=== PATIENT | male | born 1970 | race Hispanic/Latino ===

== ENCOUNTER 2018-06-01 22:20 | Emergency (ER) | payer MEDICAID ==
[2018-06-01 22:20] VITALS: BMI 38.7
[2018-06-01 22:37] VITALS: RESP 18; TEMP 97.7; O2SAT 100
[2018-06-01 23:01] LABS: BASO # 0.02 K/mm3 (0.0-2.0); BASO % 0.2 % (0.0-3.0); EOS # 0.1 (0.0-0.7); EOS % 1.6 % (1.5-5.0); GRAN # 5.62 (1.4-6.5); GRAN % 63.4 % (50.0-68.0); HEMOGLOBIN 17.2 g/dL (14.0-18.0); LYMPH # 2.6 (1.2-3.4); LYMPH % 28.8 % (22.0-35.0); MEAN CELL VOLUME 79.4 fl (80.0-105.0); MEAN CORPUSCULAR HEMOGLOBIN 28.2 pg (25.0-35.0); MEAN CORPUSCULAR HGB CONC 35.5 g/dl (31.0-37.0); MEAN PLATELET VOLUME 10.5 fl (7.0-11.0); MONO # 0.5 (0.1-0.6); RBC 6.11 10^6/uL (3.5-6.1); RED CELL DISTRIBUTION WIDTH 13.6 % (11.5-14.5); WHITE BLOOD COUNT 8.9 10^3/uL (4.5-11.0)
--- NOTE | 2018-06-01 23:20 | ED PDOC ---
Arrival/HPI - General Chief Complaint: Lower Extremity Problem/Injury Time Seen by Provider: 06/01/18 22:22 Historian: Patient - History of Present Illness Narrative History of Present Illness (Text): 06/01/18 23:17 47-year-old male with a history of diabetes who is noncompliant with medications presents today with a chronic right foot/right great toe ulceration for the past 5 months. Patient is complaining of increased pain swelling and redness to the area. He denies fevers or chills. He denies numbness weakness or tingling in the extremity. No chest pain or shortness of breath. Patient claims he stepped on a piece of glass 4 days ago and removed it and wants to have his wound sutured. Past Medical History - Provider Review Nursing Documentation Reviewed: Yes - Travel History Have you recently traveled outside [place] w/in the past 3 mons?: No - Infectious Disease Hx of Infectious Diseases: None - Tetanus Immunization Tetanus Immunization: Unknown - Past Medical History Past Medical History: No Previous - Cardiac Hx Hypertension: Yes - Pulmonary Hx Bronchitis: Yes - Psychiatric Hx Anxiety: Yes Hx Depression: No Hx Substance Use: No - Surgical History Hx Appendectomy: Yes (1969) Hx Tonsillectomy: Yes - Anesthesia Hx Anesthesia: Yes Hx Anesthesia Reactions: No - Suicidal Assessment Feels Threatened In Home Enviroment: No Family/Social History - Physician Review Nursing Documentation Reviewed: Yes Family/Social History: Unknown Family HX Smoking Status: Never Smoked Hx Alcohol Use: No Hx Substance Use: No Hx Substance Use Treatment: No Allergies/Home Meds Allergies/Adverse Reactions: Allergies Penicillins Allergy (Verified 03/28/18 20:22) Home Medications: Home Meds Medication Instructions Recorded Confirmed No Known Home Med 06/02/18 06/02/18 Review of Systems - Review of Systems Constitutional: absent: Fatigue, Fevers Respiratory: absent: SOB, Cough Cardiovascular: absent: Chest Pain, Palpitations Gastrointestinal: absent: Abdominal Pain, Nausea, Vomiting Genitourinary Male: absent: Dysuria Musculoskeletal: absent: Arthralgias, Back Pain, Neck Pain Skin: Rash, Skin Lesions Neurological: absent: Headache, Dizziness Psychiatric: absent: Anxiety, Depression Physical Exam Vital Signs Reviewed: Yes Vital Signs Temp Pulse Resp BP Pulse Ox 06/01/18 22:37 97.7 F 98 H 18 147/82 100 Temperature: Afebrile Blood Pressure: Normal Pulse: Regular Respiratory Rate: Normal Appearance: Positive for: Well-Appearing, Non-Toxic, Comfortable Pain Distress: None Mental Status: Positive for: Alert and Oriented X 3 - Systems Exam Head: Present: Atraumatic Mouth: Present: Moist Mucous Membranes Neck: Present: Normal Range of Motion Respiratory/Chest: Present: Clear to Auscultation, Good Air Exchange. No: Respiratory Distress, Accessory Muscle Use Cardiovascular: Present: Regular Rate and Rhythm, Normal S1, S2. No: Murmurs Lower Extremity: Present: Normal ROM, Tenderness, Swelling, Erythema, Neurovascularly Intact, Capillary Refill < 2 s Neurological: Present: GCS=15, Speech Normal Skin: Present: Warm, Dry Psychiatric: Present: Alert, Oriented x 3 Medical Decision Making ED Course and Treatment: 06/01/18 23:37 47-year-old diabetic male noncompliant with his diabetic medications presenting with what appears to be a chronic open wound to the plantar aspect of the right great toe since January when he was seen at [facility]. CBC within normal limits CMP glucose: X-ray of the right foot shows no acute fracture. Blood cultures pending Tetanus updated I discussed the Findings in depth with the patient advised admission to the hospital for IV antibiotics due to nonhealing ulceration of the foot in a diabetic male. pt has questioned whether he wants to stay in the hospital or not. I have advised the patient that he has a nonhealing ulcer to the foot and is a diabetic we will does not take medications for his diabetes he is at high risk of worsening infection and loss of the toe/foot. Patient has agreed to stay in the hospital. Patient was started on vancomycin and aztreonam IV Case discussed with Dr. Lam. Accepts admission Impression: Nonhealing ulceration of the great toe Admit [facility] - Lab Interpretations Lab Results: 06/01/18 22:45 Lab Results 06/01/18 22:45: WBC 8.9, RBC 6.11 H, Hgb 17.2, Hct 48.5, MCV 79.4 L, MCH 28.2, MCHC 35.5, RDW 13.6, Plt Count 243, MPV 10.5, Gran % 63.4, Lymph % (Auto) 28.8, Sac % (Auto) 6.0, Eos % (Auto) 1.6, Baso % (Auto) 0.2, Gran # 5.62, Lymph # (Auto) 2.6, Sac # (Auto) 0.5, Eos # (Auto) 0.1, Baso # (Auto) 0.02 - RAD Interpretation Radiology Orders: 06/01/18 22:34 FOOT RIGHT GREAT TOE ROUTINE [RAD] Stat Disposition/Present on Arrival - Present on Arrival Any Indicators Present on Arrival: No History of DVT/PE: No History of Uncontrolled Diabetes: No Urinary Catheter: No History of Decub. Ulcer: No History Surgical Site Infection Following: None - Disposition Have Diagnosis and Disposition been Completed?: Yes Diagnosis: Diabetic toe ulcer Disposition Time: 23:38 Patient Plan: Admission Patient Problems: Current Active Problems Problem Status Onset Diabetic toe ulcer Acute Condition: FAIR
[2018-06-01] MEDS: TDAP Vaccine 0.5 mL Syr IM ONE (23:36)
[2018-06-02] MEDS ORDERED: Vancomycin 1gm in NS 250ml 1 GM/250 ML BAG IVPB STA (00:09)
[2018-06-02] MEDS: Sodium Chloride 0.9% 1,000 ML IV STA (00:25)
[2018-06-02] MEDS: Aztreonam 1 Gm in NS 100mL 100 ML IVPB STA (00:25)
[2018-06-02 01:25] LABS: ALB/GLOB RATIO 1.2 (1.1-1.8); ALBUMIN 4.3 g/dL (3.0-4.8); ALT/SGPT 51 U/L (7-56); AST/SGOT 26 U/L (17-59); BLOOD UREA NITROGEN 21 mg/dL (7-21); CALCIUM 9.4 mg/dL (8.4-10.5); GFR NON-AFRICAN AMERICAN > 60
--- NOTE | 2018-06-02 01:31 | CP.PCM.PN ---
<Ronan Wren - Last Filed: 06/02/18 01:18> Subjective - Date & Time of Evaluation Date of Evaluation: 06/02/18 Time of Evaluation: 01:18 - Subjective Subjective: Patient seen at the bedside in the ED. He requested to sign AMA and to to be seen by a podiatry in am. Risks and complications of leaving against medical advice including sepsis, loss of toe/limb, known and unknown complications were explained to the patient and he agreed. Patient was also advised against suturing the ulcer as he requested. The attending physician Dr Lam and I emphasized the importance to see a light adjuster in the morning as an outpatient fo r optimal medical management. Patient is AAOx3 with normal insight and showed understanding. Ronan Wren DO PGY1 Objective - Vital Signs/Intake and Output Vital Signs (last 24 hours): Temp Pulse Resp BP Pulse Ox 97.7 F 98 H 18 147/82 100 06/01/18 22:37 06/01/18 22:37 06/01/18 22:37 06/01/18 22:37 06/01/18 22:37 - Medications Medications: Current Medications Vancomycin HCl (Vancomycin 1gm) 1 gm in 250 mls @ 167 mls/hr IVPB STAT STA; Protocol Stop: 06/02/18 01:38 - Labs Labs: 06/01/18 22:45 <Symone Lam - Last Filed: 06/02/18 06:54> Objective - Vital Signs/Intake and Output Vital Signs (last 24 hours): Temp Pulse Resp BP Pulse Ox 97.7 F 91 H 18 131/84 100 06/01/18 22:37 06/02/18 01:30 06/02/18 01:30 06/02/18 01:30 06/02/18 01:30 - Labs Labs: 06/01/18 22:45 06/02/18 00:10 Attending/Attestation - Attestation I have personally seen and examined this patient.: No I have fully participated in the care of the patient.: No I have reviewed all pertinent clinical information, including history, physical exam and plan: No
[2018-06-02 02:17] VITALS: BP 131/84; PULSE 91
--- NOTE | 2018-06-02 10:23 | RAD ---
Date of service: 06/01/2018 PROCEDURE: Right Foot Radiographs. HISTORY: ulcer, plantar aspect of great toe COMPARISON: None. FINDINGS: BONES: Normal. No fracture. JOINTS: Normal. SOFT TISSUES: Normal. OTHER FINDINGS: None. IMPRESSION: Normal right foot radiographs.
== END 2018-06-02 01:30 | disposition left against medical advice (07) ==
LOC: ED 22:20 → UNDOADMIN 06-02 00:25 → ERH 06-02 00:25
DX: E11.621 Type 2 diabetes mellitus with foot ulcer (principal); L97.519 Non-pressure chronic ulcer of other part of right foot with unspecified severity; I10 Essential (primary) hypertension; Z23 Encounter for immunization
CPT/HCPCS: 73660; 80053; 82948; 85025; 87040; 87070; 87181; 90471; 90715; 99284; J7030

== ENCOUNTER 2018-06-04 22:22 | Inpatient (IN) | payer MEDICAID ==
[2018-06-04 22:40] VITALS: BMI 35.6
[2018-06-04] MEDS ORDERED: Vancomycin 1gm in NS 250ml 1 GM/250 ML BAG IVPB STA (23:03)
[2018-06-04] MEDS ORDERED: Ciprofloxacin 400mg/200ml D5W 400 MG/200 ML BAG IVPB STA (23:05)
--- NOTE | 2018-06-04 23:12 | ED PDOC ---
Arrival/HPI - General Chief Complaint: Lower Extremity Problem/Injury Time Seen by Provider: 06/04/18 22:25 Historian: Patient - History of Present Illness Narrative History of Present Illness (Text): 06/04/18 23:08 47 year old male, whose past medical history includes diabetes (currently not on any medication) presents today after being called back for IV antibiotics and hospitalization for an ulcer to the right great toe. Patient denies any trauma or injury. The patient denies any fever, chills, trauma, injury, chest pain, shortness of breath, abdominal pain, nausea, vomiting, diarrhea, urinary symptoms, back pain, neck pain, headache, dizziness, or any other complaints. Of note, patient is allergic to sulfa and pcn. PMD: Dr. Ross Proctor Symptom Onset: Gradual Symptom Course: Unchanged Activities at Onset: Light Past Medical History - Provider Review Nursing Documentation Reviewed: Yes - Infectious Disease Hx of Infectious Diseases: None - Tetanus Immunization Tetanus Immunization: Unknown - Past Medical History Past Medical History: No Previous - Cardiac Hx Hypertension: Yes - Pulmonary Hx Bronchitis: Yes - Psychiatric Hx Anxiety: Yes Hx Depression: No Hx Substance Use: No - Surgical History Hx Appendectomy: Yes (1969) Hx Tonsillectomy: Yes - Anesthesia Hx Anesthesia: Yes Hx Anesthesia Reactions: No Hx Malignant Hyperthermia: No - Suicidal Assessment Feels Threatened In Home Enviroment: No Family/Social History - Physician Review Nursing Documentation Reviewed: Yes Family/Social History: No Known Family HX Smoking Status: Never Smoked Hx Alcohol Use: No Hx Substance Use: No Hx Substance Use Treatment: No Allergies/Home Meds Allergies/Adverse Reactions: Allergies Penicillins Allergy (Verified 03/28/18 20:22) Home Medications: Home Meds Medication Instructions Recorded Confirmed No Known Home Med 06/02/18 06/04/18 Review of Systems - Physician Review All systems were reviewed & negative as marked: Yes - Review of Systems Constitutional: absent: Fevers, Other (Chills) Respiratory: absent: SOB Cardiovascular: absent: Chest Pain Gastrointestinal: absent: Diarrhea, Nausea, Vomiting Genitourinary Male: absent: Dysuria, Frequency, Hematuria Musculoskeletal: absent: Back Pain, Neck Pain Skin: Ulcer (right great toe) Neurological: absent: Headache, Dizziness Physical Exam Vital Signs Reviewed: Yes Vital Signs Temp Pulse Resp BP Pulse Ox 06/04/18 22:33 98.6 F 89 18 144/88 100 Temperature: Afebrile Blood Pressure: Normal Pulse: Regular Respiratory Rate: Normal Appearance: Positive for: Well-Appearing, Non-Toxic, Comfortable Pain Distress: None Mental Status: Positive for: Alert and Oriented X 3 - Systems Exam Head: Present: Atraumatic, Normocephalic Pupils: Present: PERRL Extroacular Muscles: Present: EOMI Conjunctiva: Present: Normal Mouth: Present: Moist Mucous Membranes Neck: Present: Normal Range of Motion Respiratory/Chest: Present: Clear to Auscultation, Good Air Exchange. No: Respiratory Distress, Accessory Muscle Use Cardiovascular: Present: Regular Rate and Rhythm, Normal S1, S2. No: Murmurs Abdomen: No: Tenderness, Distention, Peritoneal Signs Back: Present: Normal Inspection Upper Extremity: Present: Normal Inspection. No: Cyanosis, Edema Lower Extremity: Present: Other (2x2cm deep ulcer on plantar aspect of the great right toe). No: Edema Neurological: Present: GCS=15, CN II-XII Intact, Speech Normal Skin: Present: Warm, Dry, Normal Color. No: Rashes Psychiatric: Present: Alert, Oriented x 3, Normal Insight, Normal Concentration Medical Decision Making ED Course and Treatment: 06/04/18 23:09 Impression: 47 year old male presents after being called back for IV antibiotics and hospitalization for ulcer to the right great toe. Wound cx from 06/02/18 : +acinetobacter sensitive to cipro, cefipime, gentamycin, zosyn. +MRSA sensitive to bactrim, gentamycin, linezolid, vancomycin. Plan: -- Labs -- Ciprofloxacin, Vancomycin -- Reassess and disposition Prior Visits: Notes and results from previous visits were reviewed. Progress Notes: Labs reviewed : wbc is normal, co2 normal, glucose 414, no anion gap. On reevaluation, patient remains awake alert and oriented 3 in no acute distress, resting comfortably. Lab results d/w the patient. He states that he ate 30 mins ago and that he takes no medicine for DM. Insulin IV and SC ordered as well as IVF bolus. Patient notified of need for admission for IV antibiotics, possible ID and podiatry consult, and for uncontrolled DM. He is agreeable to admission. Case d/w medical asst and with Dr. Gibbons, who agrees with admission to the hospitalist service. - Lab Interpretations I have reviewed the lab results: Yes - Medication Orders Current Medication Orders: Ciprofloxacin (Cipro 400mg/200ml Dsw) 400 mg in 200 mls @ 133.3 mls/hr IVPB STAT STA; Protocol Stop: 06/05/18 00:35 Vancomycin HCl (Vancomycin 1gm) 1 gm in 250 mls @ 167 mls/hr IVPB STAT STA; Protocol Stop: 06/05/18 00:32 - PA / [employer] OPERATOR / Resident Statement MD/DO has reviewed & agrees with the documentation as recorded. - Scribe Statement The provider has reviewed the documentation as recorded by the Scribe Bret Kathleen Provider Scribe Attestation: All medical record entries made by the Karmen were at my direction and personally dictated by me. I have reviewed the chart and agree that the record accurately reflects my personal performance of the history, physical exam, medical decision making, and the department course for this patient. I have also personally directed, reviewed, and agree with the discharge instructions and disposition. Disposition/Present on Arrival - Present on Arrival Any Indicators Present on Arrival: No History of DVT/PE: No History of Uncontrolled Diabetes: No Urinary Catheter: No History of Decub. Ulcer: No History Surgical Site Infection Following: None - Disposition Have Diagnosis and Disposition been Completed?: Yes Diagnosis: Diabetic toe ulcer, Uncontrolled diabetes mellitus Disposition: HOSPITALIZED Disposition Time: 00:00 Patient Plan: Admission Condition: STABLE Forms: Tabber (Maldivian)
[2018-06-04] MEDS ORDERED: Sodium Chloride 0.9% 1,000 ML IV STA (23:43)
[2018-06-04 23:57] LABS: BASO # 0.01 K/mm3 (0.0-2.0); BASO % 0.1 % (0.0-3.0); EOS # 0.1 (0.0-0.7); EOS % 1.5 % (1.5-5.0); GRAN # 4.84 (1.4-6.5); GRAN % 65.1 % (50.0-68.0); HEMOGLOBIN 15.4 g/dL (14.0-18.0); LYMPH % 27.2 % (22.0-35.0); MEAN CELL VOLUME 80.2 fl (80.0-105.0); MEAN CORPUSCULAR HEMOGLOBIN 27.5 pg (25.0-35.0); MEAN CORPUSCULAR HGB CONC 34.2 g/dl (31.0-37.0); MEAN PLATELET VOLUME 10.7 fl (7.0-11.0); MONO # 0.5 (0.1-0.6); MONO % 6.1 % (1.0-6.0); RBC 5.61 10^6/uL (3.5-6.1); RED CELL DISTRIBUTION WIDTH 13.6 % (11.5-14.5); WHITE BLOOD COUNT 7.4 10^3/uL (4.5-11.0)
[2018-06-05 00:12] LABS: ALB/GLOB RATIO 1.3 (1.1-1.8); ALBUMIN 4.2 g/dL (3.0-4.8); ALT/SGPT 48 U/L (7-56); AST/SGOT 26 U/L (17-59); BLOOD UREA NITROGEN 19 mg/dL (7-21); CALCIUM 9.2 mg/dL (8.4-10.5); GFR NON-AFRICAN AMERICAN > 60
[2018-06-05 00:19] LABS: INR 1.01; PARTIAL THROMBOPLASTIN TIME 29.1 Seconds (25.1-36.5); PROTHROMBIN TIME 11.5 SECONDS (9.4-12.5)
[2018-06-05] MEDS ORDERED: Insulin Regular 1 UNITS/0.01 ML ML IV STA (00:25)
[2018-06-05] MEDS ORDERED: Insulin Regular 1 UNITS/0.01 ML ML SC STA (00:26)
[2018-06-05] MEDS ORDERED: Dextrose 50% SYRINGE Inj (50 ml) IV PRN (01:34)
--- NOTE | 2018-06-05 01:52 | CP.PCM.HP ---
<OviAvanid - Last Filed: 06/05/18 06:43> History of Present Illness - History of Present Illness History of Present Illness: Mesha Dior, PGY-1, Medicine H&P Note for Dr. Gibbons: CC: R great toe ulcer Pt is a 47 yo M with pmhx of DM, and anxiety who presents to the ED for a chronic R great toe ulcer. Pt states that he has had this chronic R toe ulcer for about 5 months and started when he was scraping skin off from his foot. Pt admits to not having much feeling in his feet due to his DM being uncontrolled. Pt states that he noticed that the cut would keep opening in the shower and came to the ED to get the wound sutured closed yesterday, and then left AMA upon being told that he was being admitted. Cultures that were taken of the wound which grew Acinetobacter and MRSA so pt was informed to come back to the ED for IV abx. Pt states that he is allergic to sulfa drugs. Pt denies pain but he states that it is because he does not have sensation in his feet. He denies any swelling to the area or increased warmth. He denies any fevers, chills, chest pain, palpitations, SOB, cough, abd pain, n/v, c/d, dysuria but does admit to increased urinary frequency. Pmhx: DM, anxiety Pshx: Appendectomy 20 years ago Meds: Denies All: Sulfa drugs- rash Social: quit smoking 25 years ago, denies any etoh or illicit drug use Fam: Non-contributory PMD: Esthela Pharm: Micky Present on Admission - Present on Admission Any Indicators Present on Admission: No Review of Systems - Review of Systems Review of Systems: 12 point ROS reviewed and negative except noted in HPI above. Past Patient History - Infectious Disease Hx of Infectious Diseases: None - Tetanus Immunizations Tetanus Immunization: Unknown - Past Social History Smoking Status: Never Smoked - CARDIAC Hx Hypertension: Yes - PULMONARY Hx Bronchitis: Yes - PSYCHIATRIC Hx Anxiety: Yes Hx Depression: No Hx Substance Use: No - SURGICAL HISTORY Hx Appendectomy: Yes (1969) Hx Tonsillectomy: Yes - ANESTHESIA Hx Anesthesia: Yes Hx Anesthesia Reactions: No Hx Malignant Hyperthermia: No Meds Allergies/Adverse Reactions: Allergies Allergy/AdvReac Type Severity Reaction Status Date / Time Penicillins Allergy Verified 03/28/18 20:22 Physical Exam - Constitutional Appears: Well, Non-toxic, No Acute Distress - Head Exam Head Exam: ATRAUMATIC, NORMAL INSPECTION, NORMOCEPHALIC - Eye Exam Eye Exam: EOMI, Normal appearance, PERRL - Respiratory Exam Respiratory Exam: Clear to Auscultation Bilateral, NORMAL BREATHING PATTERN. absent: Accessory Muscle Use, Decreased Breath Sounds, Rales, Rhonchi, Wheezes, Respiratory Distress, Stridor - Cardiovascular Exam Cardiovascular Exam: RRR, +S1, +S2. absent: Gallop, Rubs - GI/Abdominal Exam GI & Abdominal Exam: Normal Bowel Sounds, Soft. absent: Distended, Firm, Guarding, Tenderness - Extremities Exam Extremities exam: Positive for: pedal pulses present. Negative for: pedal edema, tenderness Additional comments: 2 cm deep ulcer on plantar aspect of the R great toe - Back Exam Back exam: NORMAL INSPECTION. absent: CVA tenderness (L), CVA tenderness (R) - Neurological Exam Neurological exam: Alert, Oriented x3 - Psychiatric Exam Psychiatric exam: Normal Affect, Normal Mood - Skin Skin Exam: Dry, Normal Color, Warm Results - Vital Signs Recent Vital Signs: Last Vital Signs Temp 98.6 F 06/04/18 22:33 Pulse 89 06/04/18 22:33 Resp 18 06/04/18 22:33 BP 144/88 06/04/18 22:33 Pulse Ox 100 06/04/18 22:33 - Labs Result Diagrams: 06/04/18 23:30 06/04/18 23:30 Labs: Laboratory Results - last 24 hr 06/04/18 06/04/18 06/04/18 23:30 23:30 23:30 WBC 7.4 RBC 5.61 Hgb 15.4 Hct 45.0 MCV 80.2 MCH 27.5 MCHC 34.2 RDW 13.6 Plt Count 216 MPV 10.7 Gran % 65.1 Lymph % (Auto) 27.2 Lyon % (Auto) 6.1 H Eos % (Auto) 1.5 Baso % (Auto) 0.1 Gran # 4.84 Lymph # (Auto) 2.0 Lyon # (Auto) 0.5 Eos # (Auto) 0.1 Baso # (Auto) 0.01 PT 11.5 INR 1.01 APTT 29.1 Sodium 136 Potassium 4.4 Chloride 102 Carbon Dioxide 25 Anion Gap 14 BUN 19 Creatinine 0.8 Est GFR ( Amer) > 60 Est GFR (Non-Af Amer) > 60 POC Glucose (mg/dL) Random Glucose 414 H* Calcium 9.2 Total Bilirubin 0.3 AST 26 ALT 48 Alkaline Phosphatase 92 Total Protein 7.4 Albumin 4.2 Globulin 3.3 Albumin/Globulin Ratio 1.3 06/04/18 23:39 WBC RBC Hgb Hct MCV MCH MCHC RDW Plt Count MPV Gran % Lymph % (Auto) Lyon % (Auto) Eos % (Auto) Baso % (Auto) Gran # Lymph # (Auto) Lyon # (Auto) Eos # (Auto) Baso # (Auto) PT INR APTT Sodium Potassium Chloride Carbon Dioxide Anion Gap BUN Creatinine Est GFR ( Amer) Est GFR (Non-Af Amer) POC Glucose (mg/dL) 383 H Random Glucose Calcium Total Bilirubin AST ALT Alkaline Phosphatase Total Protein Albumin Globulin Albumin/Globulin Ratio Assessment & Plan - Assessment and Plan (Free Text) Assessment: Pt is a 47 yo M with pmhx of DM, and anxiety who presents to the ED for a chronic R great toe ulcer. Pt was seen in ED yesterday for same complaint but left AMA, was called back after wound cx showed him growing acinetobacter and MRSA. Pt is allergic to sulfa drugs as per pt. Plan: 1. Diabetic foot ulcer: - R sided diabetic foot ulcer on the plantar aspect of R great toe - Wound cx grew: Acinetobacter and MRSA - Pt started on cipro and vanc IV - ID consulted - Podiatry consulted - Foot XR taken in ED on 06/01 admission yesterday showed normal R foot XR 2. Hyperglycemia w/out gap: - ISS- medium - Cont to monitor 3. Uncontrolled DM: - HgbA1c - ISS- Medium - Cont to monitor 4. PPX: GI: Protonic DVT: Lovenox Case seen and discussed with Dr. Edwige Dior, PGY-1 <Raul Gibbons - Last Filed: 06/06/18 14:20> Results - Vital Signs Recent Vital Signs: Last Vital Signs Temp 98.7 F 06/06/18 07:00 Pulse 65 06/06/18 07:00 Resp 20 06/06/18 07:00 BP 150/98 H 12/24/18 07:00 Pulse Ox 98 06/06/18 07:00 - Labs Result Diagrams: 06/06/18 06:45 06/06/18 06:45 Labs: Laboratory Results - last 24 hr 06/05/18 06/05/18 06/05/18 07:00 14:45 15:47 WBC RBC Hgb Hct MCV MCH MCHC RDW Plt Count MPV Gran % Lymph % (Auto) Lyon % (Auto) Eos % (Auto) Baso % (Auto) Gran # Lymph # (Auto) Lyon # (Auto) Eos # (Auto) Baso # (Auto) Sodium Potassium Chloride Carbon Dioxide Anion Gap BUN Creatinine Est GFR ( Amer) Est GFR (Non-Af Amer) POC Glucose (mg/dL) 205 H Random Glucose Hemoglobin A1c 10.6 H Calcium Total Bilirubin AST ALT Alkaline Phosphatase Troponin I < 0.01 Total Protein Albumin Globulin Albumin/Globulin Ratio 06/05/18 06/05/18 06/06/18 20:00 20:36 02:40 WBC RBC Hgb Hct MCV MCH MCHC RDW Plt Count MPV Gran % Lymph % (Auto) Lyon % (Auto) Eos % (Auto) Baso % (Auto) Gran # Lymph # (Auto) Lyon # (Auto) Eos # (Auto) Baso # (Auto) Sodium Potassium Chloride Carbon Dioxide Anion Gap BUN Creatinine Est GFR ( Amer) Est GFR (Non-Af Amer) POC Glucose (mg/dL) 202 H Random Glucose Hemoglobin A1c Calcium Total Bilirubin AST ALT Alkaline Phosphatase Troponin I < 0.01 < 0.01 Total Protein Albumin Globulin Albumin/Globulin Ratio 06/06/18 06/06/18 06/06/18 06:36 06:45 06:45 WBC 8.4 RBC 5.88 Hgb 16.5 Hct 46.8 MCV 79.6 L MCH 28.1 MCHC 35.3 RDW 13.5 Plt Count 214 MPV 10.2 Gran % 58.8 Lymph % (Auto) 32.0 Lyon % (Auto) 7.0 H Eos % (Auto) 2.1 Baso % (Auto) 0.1 Gran # 4.92 Lymph # (Auto) 2.7 Lyon # (Auto) 0.6 Eos # (Auto) 0.2 Baso # (Auto) 0.01 Sodium Potassium Chloride Carbon Dioxide Anion Gap BUN Creatinine Est GFR ( Amer) Est GFR (Non-Af Amer) POC Glucose (mg/dL) 150 H Random Glucose Hemoglobin A1c 10.6 H Calcium Total Bilirubin AST ALT Alkaline Phosphatase Troponin I Total Protein Albumin Globulin Albumin/Globulin Ratio 06/06/18 06:45 WBC RBC Hgb Hct MCV MCH MCHC RDW Plt Count MPV Gran % Lymph % (Auto) Lyon % (Auto) Eos % (Auto) Baso % (Auto) Gran # Lymph # (Auto) Lyon # (Auto) Eos # (Auto) Baso # (Auto) Sodium 138 Potassium 3.9 Chloride 104 Carbon Dioxide 25 Anion Gap 13 BUN 12 Creatinine 0.8 Est GFR ( Amer) > 60 Est GFR (Non-Af Amer) > 60 POC Glucose (mg/dL) Random Glucose 189 H Hemoglobin A1c Calcium 9.3 Total Bilirubin 0.8 AST 22 ALT 45 Alkaline Phosphatase 71 Troponin I Total Protein 7.7 Albumin 4.3 Globulin 3.4 Albumin/Globulin Ratio 1.3 Attending/Attestation - Attestation I have personally seen and examined this patient.: Yes I have fully participated in the care of the patient.: Yes I have reviewed all pertinent clinical information: Yes
[2018-06-05] MEDS: Pantoprazole 40 mg EC Tab PO SCH (05:44)
[2018-06-05 07:33] LABS: BASO # 0.02 K/mm3 (0.0-2.0); BASO % 0.3 % (0.0-3.0); EOS # 0.1 (0.0-0.7); GRAN # 3.75 (1.4-6.5); HEMOGLOBIN 15.1 g/dL (14.0-18.0); LYMPH # 2.4 (1.2-3.4); LYMPH % 34.5 % (22.0-35.0); MEAN CELL VOLUME 80.4 fl (80.0-105.0); MEAN CORPUSCULAR HEMOGLOBIN 27.2 pg (25.0-35.0); MEAN CORPUSCULAR HGB CONC 33.9 g/dl (31.0-37.0); MEAN PLATELET VOLUME 10.3 fl (7.0-11.0); MONO # 0.6 (0.1-0.6); MONO % 9.2 % (1.0-6.0); RBC 5.55 10^6/uL (3.5-6.1); RED CELL DISTRIBUTION WIDTH 13.5 % (11.5-14.5)
[2018-06-05 07:44] LABS: ALB/GLOB RATIO 1.3 (1.1-1.8); ALT/SGPT 47 U/L (7-56); AST/SGOT 18 U/L (17-59); BLOOD UREA NITROGEN 15 mg/dL (7-21); CALCIUM 8.8 mg/dL (8.4-10.5); GFR NON-AFRICAN AMERICAN > 60
[2018-06-05] MEDS: Insulin Lispro (humaLOG) MEDIUM Coverage SC SCH ×3 (08:26→17:06)
[2018-06-05] MEDS ORDERED: Ciprofloxacin 400mg/200ml D5W 400 MG/200 ML BAG IVPB SCH ×2 (10:00→22:00)
[2018-06-05] MEDS ORDERED: Enoxaparin 40 mg Syringe SC SCH (10:00)
--- NOTE | 2018-06-05 13:00 | CP.PCM.CON ---
History of Present Illness - History of Present Illness History of Present Illness: Podiatry consult note for Dr. cummings, Pt is a 47 yo M with pmhx of DM, and anxiety who presents to the ED for a chronic R great toe ulcer. Pt states that he has had this chronic R toe ulcer for about 5 months and started when he was scraping skin off from his foot. Patient denies much of a sensation in the foot. Patient was recenty in the ED to gget the wound sutured closed however left AMA when he was advised that he will need to be admitted. Pt denies pain Denies seeing any purulent drainage. He denies any swelling to the area or increased warmth. He denies any fevers, chills, chest pain, palpitations, SOB, cough, n/v, c/d, Pmhx: DM, anxiety Pshx: Appendectomy 20 years ago Meds: Denies All: Sulfa drugs- rash Social: quit smoking 25 years ago, denies any etoh or illicit drug use Fam: Non-contributory PMD: Esthela Pharm: Micky Past Patient History - Infectious Disease Hx of Infectious Diseases: None - Tetanus Immunizations Tetanus Immunization: Unknown - Past Social History Smoking Status: Never Smoked - CARDIAC Hx Hypertension: Yes - PULMONARY Hx Bronchitis: Yes - MUSCULOSKELETAL/RHEUMATOLOGICAL Hx Falls: No - PSYCHIATRIC Hx Anxiety: Yes Hx Depression: No Hx Substance Use: No - SURGICAL HISTORY Hx Appendectomy: Yes (1969) Hx Tonsillectomy: Yes - ANESTHESIA Hx Anesthesia: Yes Hx Anesthesia Reactions: No Hx Malignant Hyperthermia: No Meds Allergies/Adverse Reactions: Allergies Allergy/AdvReac Type Severity Reaction Status Date / Time Penicillins Allergy Verified 03/28/18 20:22 - Medications Medications: Current Medications Dextrose (Dextrose 50% Inj) 0 ml IV STAT PRN; Protocol PRN Reason: Hypoglycemia Protocol Enoxaparin Sodium (Lovenox) 40 mg SC DAILY [facility]; Protocol Last Admin: 06/05/18 09:33 Dose: 40 mg Vancomycin HCl (Vancomycin 1gm) 1 gm in 250 mls @ 167 mls/hr IVPB Q12H [facility]; Protocol Dextrose (Dextrose 5% In Water 1000 Ml) 1,000 mls @ 0 mls/hr IV .Q0M PRN; Protocol PRN Reason: Hypoglycemia Protocol Insulin Human Lispro (Humalog Med) 0 units SC ACHS [facility]; Protocol Last Admin: 06/05/18 12:21 Dose: 5 unit Pantoprazole Sodium (Protonix Ec Tab) 40 mg PO 0600 [facility] Last Admin: 06/05/18 05:44 Dose: 40 mg Physical Exam - Constitutional Appears: Well, Non-toxic, No Acute Distress - Head Exam Head Exam: ATRAUMATIC, NORMOCEPHALIC - Eye Exam Eye Exam: Normal appearance Pupil Exam: NORMAL ACCOMODATION - ENT Exam ENT Exam: Mucous Membranes Moist - Respiratory Exam Respiratory Exam: NORMAL BREATHING PATTERN - Cardiovascular Exam Cardiovascular Exam: REGULAR RHYTHM - Extremities Exam Additional comments: Right lower extremity exam: vascular: Dp/PT 2/4, CFT <3 secs x 5, TG warm to cool, no erythema or edema noted neuro: protective sensation diminished via ipswich 07/18 derm: circular ulcer noted on the plantar aspect of the hallux measuring approximately 1.5 cm x 1.5 cmx 2.0 cm. Wound base is 100% fibrotic, minimal active serous drainage noted, no purulence, no fluctuance, no tracking or tunneling, no malodor, no clinical signs of soft tissue infection ortho: no pain on palpation of the right hallux or ROM of the right 1st MPJ Results - Vital Signs Recent Vital Signs: Last Vital Signs Temp 98.7 F 06/05/18 06:00 Pulse 82 06/05/18 06:00 Resp 20 06/05/18 06:00 BP 138/90 06/05/18 06:00 Pulse Ox 100 06/05/18 06:00 - Labs Result Diagrams: 06/05/18 07:00 06/05/18 07:00 Labs: Laboratory Results - last 24 hr 06/04/18 06/04/18 06/04/18 23:30 23:30 23:30 WBC 7.4 RBC 5.61 Hgb 15.4 Hct 45.0 MCV 80.2 MCH 27.5 MCHC 34.2 RDW 13.6 Plt Count 216 MPV 10.7 Gran % 65.1 Lymph % (Auto) 27.2 [place] % (Auto) 6.1 H Eos % (Auto) 1.5 Baso % (Auto) 0.1 Gran # 4.84 Lymph # (Auto) 2.0 [place] # (Auto) 0.5 Eos # (Auto) 0.1 Baso # (Auto) 0.01 PT 11.5 INR 1.01 APTT 29.1 Sodium 136 Potassium 4.4 Chloride 102 Carbon Dioxide 25 Anion Gap 14 BUN 19 Creatinine 0.8 Est GFR ( Amer) > 60 Est GFR (Non-Af Amer) > 60 POC Glucose (mg/dL) Random Glucose 414 H* Calcium 9.2 Total Bilirubin 0.3 AST 26 ALT 48 Alkaline Phosphatase 92 Total Protein 7.4 Albumin 4.2 Globulin 3.3 Albumin/Globulin Ratio 1.3 06/04/18 06/05/18 06/05/18 23:39 01:54 07:00 WBC 7.0 RBC 5.55 Hgb 15.1 Hct 44.6 MCV 80.4 MCH 27.2 MCHC 33.9 RDW 13.5 Plt Count 193 MPV 10.3 Gran % 54.0 Lymph % (Auto) 34.5 [place] % (Auto) 9.2 H Eos % (Auto) 2.0 Baso % (Auto) 0.3 Gran # 3.75 Lymph # (Auto) 2.4 [place] # (Auto) 0.6 Eos # (Auto) 0.1 Baso # (Auto) 0.02 PT INR APTT Sodium Potassium Chloride Carbon Dioxide Anion Gap BUN Creatinine Est GFR ( Amer) Est GFR (Non-Af Amer) POC Glucose (mg/dL) 383 H 275 H Random Glucose Calcium Total Bilirubin AST ALT Alkaline Phosphatase Total Protein Albumin Globulin Albumin/Globulin Ratio 06/05/18 06/05/18 06/05/18 07:00 08:00 11:33 WBC RBC Hgb Hct MCV MCH MCHC RDW Plt Count MPV Gran % Lymph % (Auto) [place] % (Auto) Eos % (Auto) Baso % (Auto) Gran # Lymph # (Auto) [place] # (Auto) Eos # (Auto) Baso # (Auto) PT INR APTT Sodium 138 Potassium 3.8 Chloride 104 Carbon Dioxide 26 Anion Gap 12 BUN 15 Creatinine 0.7 L Est GFR ( Amer) > 60 Est GFR (Non-Af Amer) > 60 POC Glucose (mg/dL) 184 H 253 H Random Glucose 210 H Calcium 8.8 Total Bilirubin 0.4 AST 18 ALT 47 Alkaline Phosphatase 72 Total Protein 7.1 Albumin 4.0 Globulin 3.1 Albumin/Globulin Ratio 1.3 Assessment & Plan - Assessment and Plan (Free Text) Assessment: 47 year old male presents after being called back for IV antibiotics and hospitalization for ulcer to the right great toe. Plan: Patient seen and evaluated chart, labs and vitals reviewed, absent leukocytosis, afebrile x-ray of the foot reviewed; no signs of osseous abnormality noted MRI of the lower extremity ordered to rule out osteomyelitis wound cultures taken from the wound: acinetobacter and MRSA Continue ciprofloxcain and vancomycin ID on board, recs appreciated. Podiatry will continue to follow the patient WBAT to the heel and surgical shoe. Thank you for the consult
[2018-06-05] MEDS: Vancomycin 1gm in NS 250ml 1 GM/250 ML BAG IVPB SCH (13:46)
[2018-06-05 15:35] VITALS: O2SAT 98
--- NOTE | 2018-06-05 17:39 | CP.PCM.CON ---
History of Present Illness - History of Present Illness History of Present Illness: Infectious Disease Consultation: June 05, 2018 47 yo male with PMHx of DM and anxiety presenting with a Right great toe ulcer. Patient claims the ulcer started 5 months ago. He was in the ER a few days ago but left AMA when he was being told that he was being admitted to the hospital. The patient has uncontrolled diabetes and is showing definite signs of diabetic neuropathy. Cultures of the wound taken at that time showed MRSA and Acinetobacter. PMHx: DM, Anxiety PSHx: Appendectomy 20 years ago Allergies: Sulfa - rash Social Hx: stopped smoking 25 years ago No illicit drug use No EtOH Active Medications Dextrose (Dextrose 50% Inj) 0 ml IV STAT PRN; Protocol PRN Reason: Hypoglycemia Protocol Enoxaparin Sodium (Lovenox) 40 mg SC DAILY [facility]; Protocol Last Admin: 06/05/18 09:33 Dose: 40 mg Vancomycin HCl (Vancomycin 1gm) 1 gm in 250 mls @ 167 mls/hr IVPB Q12H [facility]; Protocol Last Admin: 06/05/18 13:46 Dose: 167 mls/hr Dextrose (Dextrose 5% In Water 1000 Ml) 1,000 mls @ 0 mls/hr IV .Q0M PRN; Protocol PRN Reason: Hypoglycemia Protocol Insulin Human Lispro (Humalog Med) 0 units SC ACHS [facility]; Protocol Last Admin: 06/05/18 17:06 Dose: 3 unit Pantoprazole Sodium (Protonix Ec Tab) 40 mg PO 0600 [facility] Last Admin: 06/05/18 05:44 Dose: 40 mg Family Hx: none given ROS: peripheral neuropathy, right toe ulcer No chest pain, abdominal pain, melena, hematuria, hematemesis, hematochezia, depression, anxiety, diarrhea, headaches, dizziness, vision loss, hearing loss, loss of consciousness. Past Patient History - Infectious Disease Hx of Infectious Diseases: None - Tetanus Immunizations Tetanus Immunization: Unknown - Past Social History Smoking Status: Never Smoked - CARDIAC Hx Hypertension: Yes - PULMONARY Hx Bronchitis: Yes - MUSCULOSKELETAL/RHEUMATOLOGICAL Hx Falls: No - PSYCHIATRIC Hx Anxiety: Yes Hx Depression: No Hx Substance Use: No - SURGICAL HISTORY Hx Appendectomy: Yes (1969) Hx Tonsillectomy: Yes - ANESTHESIA Hx Anesthesia: Yes Hx Anesthesia Reactions: No Hx Malignant Hyperthermia: No Meds Allergies/Adverse Reactions: Allergies Allergy/AdvReac Type Severity Reaction Status Date / Time Penicillins Allergy Verified 03/28/18 20:22 - Medications Medications: Current Medications Dextrose (Dextrose 50% Inj) 0 ml IV STAT PRN; Protocol PRN Reason: Hypoglycemia Protocol Enoxaparin Sodium (Lovenox) 40 mg SC DAILY [facility]; Protocol Last Admin: 06/05/18 09:33 Dose: 40 mg Vancomycin HCl (Vancomycin 1gm) 1 gm in 250 mls @ 167 mls/hr IVPB Q12H [facility]; Protocol Last Admin: 06/05/18 13:46 Dose: 167 mls/hr Dextrose (Dextrose 5% In Water 1000 Ml) 1,000 mls @ 0 mls/hr IV .Q0M PRN; Pro tocol PRN Reason: Hypoglycemia Protocol Insulin Human Lispro (Humalog Med) 0 units SC ACHS [facility]; Protocol Last Admin: 06/05/18 17:06 Dose: 3 unit Pantoprazole Sodium (Protonix Ec Tab) 40 mg PO 0600 [facility] Last Admin: 06/05/18 05:44 Dose: 40 mg Physical Exam - Constitutional Appears: Non-toxic, No Acute Distress, Chronically Ill - Head Exam Head Exam: ATRAUMATIC, NORMOCEPHALIC - Eye Exam Eye Exam: EOMI, PERRL Pupil Exam: NORMAL ACCOMODATION, PERRL - ENT Exam ENT Exam: Mucous Membranes Moist, Normal External Ear Exam, TM's Normal Bilaterally - Neck Exam Neck exam: Positive for: Full Rom, Normal Inspection - Respiratory Exam Respiratory Exam: Clear to Auscultation Bilateral, NORMAL BREATHING PATTERN. a bsent: Rales, Rhonchi, Wheezes - Cardiovascular Exam Cardiovascular Exam: REGULAR RHYTHM, RRR, +S1, +S2 - GI/Abdominal Exam GI & Abdominal Exam: Normal Bowel Sounds, Soft. absent: Distended, Tenderness - Extremities Exam Extremities exam: Positive for: full ROM Additional comments: vascular: Dp/PT 2/4, CFT <3 secs x 5, TG warm to cool, no erythema or edema noted neuro: protective sensation diminished via ipswich 2/4 derm: circular ulcer noted on the plantar aspect of the hallux measuring approximately 1.5 cm x 1.5 cmx 2.0 cm. Wound base is 100% fibrotic, minimal active serous drainage noted, no purulence, no fluctuance, no tracking or tunneling, no malodor, no clinical signs of soft tissue infection ortho: no pain on palpation of the right hallux or ROM of the right 1st MPJ - Neurological Exam Neurological exam: Alert, CN II-XII Intact, Oriented x3 Additional comments: Sensory deficits in lower legs. - Psychiatric Exam Psychiatric exam: Normal Affect, Normal Mood - Skin Skin Exam: Intact, Normal Color Results - Vital Signs Recent Vital Signs: Last Vital Signs Temp 98.4 F 06/05/18 16:17 Pulse 72 06/05/18 16:25 Resp 18 06/05/18 16:17 BP 164/105 H 06/05/18 16:25 Pulse Ox 98 06/05/18 16:17 - Labs Result Diagrams: 06/05/18 07:00 06/05/18 07:00 Labs: Laboratory Results - last 24 hr 06/04/18 06/04/18 06/04/18 23:30 23:30 23:30 WBC 7.4 RBC 5.61 Hgb 15.4 Hct 45.0 MCV 80.2 MCH 27.5 MCHC 34.2 RDW 13.6 Plt Count 216 MPV 10.7 Gran % 65.1 Lymph % (Auto) 27.2 [place] % (Auto) 6.1 H Eos % (Auto) 1.5 Baso % (Auto) 0.1 Gran # 4.84 Lymph # (Auto) 2.0 [place] # (Auto) 0.5 Eos # (Auto) 0.1 Baso # (Auto) 0.01 PT 11.5 INR 1.01 APTT 29.1 Sodium 136 Potassium 4.4 Chloride 102 Carbon Dioxide 25 Anion Gap 14 BUN 19 Creatinine 0.8 Est GFR ( Amer) > 60 Est GFR (Non-Af Amer) > 60 POC Glucose (mg/dL) Random Glucose 414 H* Calcium 9.2 Total Bilirubin 0.3 AST 26 ALT 48 Alkaline Phosphatase 92 Troponin I Total Protein 7.4 Albumin 4.2 Globulin 3.3 Albumin/Globulin Ratio 1.3 06/04/18 06/05/18 06/05/18 23:39 01:54 07:00 WBC 7.0 RBC 5.55 Hgb 15.1 Hct 44.6 MCV 80.4 MCH 27.2 MCHC 33.9 RDW 13.5 Plt Count 193 MPV 10.3 Gran % 54.0 Lymph % (Auto) 34.5 [place] % (Auto) 9.2 H Eos % (Auto) 2.0 Baso % (Auto) 0.3 Gran # 3.75 Lymph # (Auto) 2.4 [place] # (Auto) 0.6 Eos # (Auto) 0.1 Baso # (Auto) 0.02 PT INR APTT Sodium Potassium Chloride Carbon Dioxide Anion Gap BUN Creatinine Est GFR ( Amer) Est GFR (Non-Af Amer) POC Glucose (mg/dL) 383 H 275 H Random Glucose Calcium Total Bilirubin AST ALT Alkaline Phosphatase Troponin I Total Protein Albumin Globulin Albumin/Globulin Ratio 06/05/18 06/05/18 06/05/18 07:00 08:00 11:33 WBC RBC Hgb Hct MCV MCH MCHC RDW Plt Count MPV Gran % Lymph % (Auto) [place] % (Auto) Eos % (Auto) Baso % (Auto) Gran # Lymph # (Auto) [place] # (Auto) Eos # (Auto) Baso # (Auto) PT INR APTT Sodium 138 Potassium 3.8 Chloride 104 Carbon Dioxide 26 Anion Gap 12 BUN 15 Creatinine 0.7 L Est GFR ( Amer) > 60 Est GFR (Non-Af Amer) > 60 POC Glucose (mg/dL) 184 H 253 H Random Glucose 210 H Calcium 8.8 Total Bilirubin 0.4 AST 18 ALT 47 Alkaline Phosphatase 72 Troponin I Total Protein 7.1 Albumin 4.0 Globulin 3.1 Albumin/Globulin Ratio 1.3 06/05/18 06/05/18 14:45 15:47 WBC RBC Hgb Hct MCV MCH MCHC RDW Plt Count MPV Gran % Lymph % (Auto) [place] % (Auto) Eos % (Auto) Baso % (Auto) Gran # Lymph # (Auto) [place] # (Auto) Eos # (Auto) Baso # (Auto) PT INR APTT Sodium Potassium Chloride Carbon Dioxide Anion Gap BUN Creatinine Est GFR ( Amer) Est GFR (Non-Af Amer) POC Glucose (mg/dL) 205 H Random Glucose Calcium Total Bilirubin AST ALT Alkaline Phosphatase Troponin I < 0.01 Total Protein Albumin Globulin Albumin/Globulin Ratio Assessment & Plan - Assessment and Plan (Free Text) Assessment: 47 yo male with history of uncontrolled DM and history of Anxiety with right great toe ulceration with serosaguinous drainage. Cultures done recently show Acinetobacter and MRSA. Acinetobacter was sensitive to Cipro. MRSA was sensitive to Vancomycin IV. Supportive care. Continue on Cipro and IV Vancomycin. Check Hgb A1c. No signs of renal insufficiency at this time. Supportive care Wound care as per Podiatry. Thank you for allowing me to participate in the care of the patient, we will follow with you.
[2018-06-06] MEDS: Insulin Lispro (humaLOG) MEDIUM Coverage SC SCH ×2 (04:49→08:06)
[2018-06-06] MEDS: Vancomycin 1gm in NS 250ml 1 GM/250 ML BAG IVPB SCH (04:55)
[2018-06-06] MEDS: Pantoprazole 40 mg EC Tab PO SCH (05:17)
[2018-06-06 07:22] LABS: BASO # 0.01 K/mm3 (0.0-2.0); BASO % 0.1 % (0.0-3.0); EOS # 0.2 (0.0-0.7); EOS % 2.1 % (1.5-5.0); GRAN # 4.92 (1.4-6.5); GRAN % 58.8 % (50.0-68.0); HEMOGLOBIN 16.5 g/dL (14.0-18.0); LYMPH # 2.7 (1.2-3.4); MEAN CELL VOLUME 79.6 fl (80.0-105.0); MEAN CORPUSCULAR HEMOGLOBIN 28.1 pg (25.0-35.0); MEAN CORPUSCULAR HGB CONC 35.3 g/dl (31.0-37.0); MEAN PLATELET VOLUME 10.2 fl (7.0-11.0); MONO # 0.6 (0.1-0.6); RBC 5.88 10^6/uL (3.5-6.1); RED CELL DISTRIBUTION WIDTH 13.5 % (11.5-14.5); WHITE BLOOD COUNT 8.4 10^3/uL (4.5-11.0)
[2018-06-06 07:38] LABS: ALB/GLOB RATIO 1.3 (1.1-1.8); ALBUMIN 4.3 g/dL (3.0-4.8); ALT/SGPT 45 U/L (7-56); AST/SGOT 22 U/L (17-59); BLOOD UREA NITROGEN 12 mg/dL (7-21); CALCIUM 9.3 mg/dL (8.4-10.5); GFR NON-AFRICAN AMERICAN > 60
[2018-06-06 08:26] VITALS: BP 150/98; PULSE 65; RESP 20; TEMP 98.7
--- NOTE | 2018-06-06 09:12 | CARD ---
APPROVED REPORT Date of service: 06/05/2018 EKG Measurement Heart [id number] <Conclusion> Normal sinus rhythm Small q waves 2,3,F Normal ECG No change
--- NOTE | 2018-06-06 11:56 | CP.PCM.DIS ---
<Paul Cartagenaant - Last Filed: 06/06/18 16:10> Provider - Provider Date of Admission: 06/05/18 00:00 Attending physician: Solomon Mazariegos MD Consults: 06/05/18 01:41 Infectious Disease Consult Routine Comment: Consulting Provider: Stewart Salvador Consulting Physician: Stewart Salvador Reason for Consult: MRSA and acinobacter diabetic foot ulcer, allergic to sulfa abx Podiatry Consult Routine Comment: Consulting Provider: Serg Cartagena Consulting Physician: Serg Cartagena Reason for Consult: Diabetic foot ulcer Time Spent in preparation of Discharge (in minutes): 45 Diagnosis - Discharge Diagnosis (1) Diabetes Status: Acute (2) Chronic diabetic ulcer of right foot determined by examination Status: Acute (3) Diabetic neuropathy Status: Acute (4) Hypertension Status: Acute Hospital Course - Lab Results Lab Results: Most Recent Lab Values WBC 8.4 10^3/uL (4.5-11.0) 06/06/18 06:45 RBC 5.88 10^6/uL (3.5-6.1) 06/06/18 06:45 Hgb 16.5 g/dL (14.0-18.0) 06/06/18 06:45 Hct 46.8 % (42.0-52.0) 06/06/18 06:45 MCV 79.6 fl (80.0-105.0) L 06/06/18 06:45 MCH 28.1 pg (25.0-35.0) 06/06/18 06:45 MCHC 35.3 g/dl (31.0-37.0) 06/06/18 06:45 RDW 13.5 % (11.5-14.5) 06/06/18 06:45 Plt Count 214 10^3/uL (120.0-450.0) 06/06/18 06:45 MPV 10.2 fl (7.0-11.0) 06/06/18 06:45 Gran % 58.8 % (50.0-68.0) 06/06/18 06:45 Lymph % (Auto) 32.0 % (22.0-35.0) 06/06/18 06:45 [place] % (Auto) 7.0 % (1.0-6.0) H 06/06/18 06:45 Eos % (Auto) 2.1 % (1.5-5.0) 06/06/18 06:45 Baso % (Auto) 0.1 % (0.0-3.0) 06/06/18 06:45 Gran # 4.92 (1.4-6.5) 06/06/18 06:45 Lymph # (Auto) 2.7 (1.2-3.4) 06/06/18 06:45 [place]w # (Auto) 0.6 (0.1-0.6) 06/06/18 06:45 Eos # (Auto) 0.2 (0.0-0.7) 06/06/18 06:45 Baso # (Auto) 0.01 K/mm3 (0.0-2.0) 06/06/18 06:45 PT 11.5 SECONDS (9.4-12.5) 06/04/18 23:30 INR 1.01 06/04/18 23:30 APTT 29.1 Seconds (25.1-36.5) 06/04/18 23:30 Sodium 138 mmol/L (132-148) 06/06/18 06:45 Potassium 3.9 mmol/L (3.6-5.0) 06/06/18 06:45 Chloride 104 mmol/L (98-107) 06/06/18 06:45 Carbon Dioxide 25 mmol/L (21-33) 06/06/18 06:45 Anion Gap 13 (10-20) 06/06/18 06:45 BUN 12 mg/dL (7-21) 06/06/18 06:45 Creatinine 0.8 mg/dl (0.8-1.5) 06/06/18 06:45 Est GFR ( Amer) > 60 06/06/18 06:45 Est GFR (Non-Af Amer) > 60 06/06/18 06:45 POC Glucose (mg/dL) 150 mg/dL (65-110) H 06/06/18 06:36 Random Glucose 189 mg/dL (70-110) H 06/06/18 06:45 Hemoglobin A1c 10.6 % (4.2-6.5) H 06/06/18 06:45 Calcium 9.3 mg/dL (8.4-10.5) 06/06/18 06:45 Total Bilirubin 0.8 mg/dL (0.2-1.3) 06/06/18 06:45 AST 22 U/L (17-59) 06/06/18 06:45 ALT 45 U/L (7-56) 06/06/18 06:45 Alkaline Phosphatase 71 U/L (38-126) 06/06/18 06:45 Troponin I < 0.01 ng/mL 06/06/18 02:40 Total Protein 7.7 g/dL (5.8-8.3) 06/06/18 06:45 Albumin 4.3 g/dL (3.0-4.8) 06/06/18 06:45 Globulin 3.4 gm/dL 06/06/18 06:45 Albumin/Globulin Ratio 1.3 (1.1-1.8) 06/06/18 06:45 - Hospital Course Hospital Course: Jhonatan Cartagena DO PGY1 Internal Medicine Registered Dietitian Hospital Discharge Summary PLEASE NOTE THAT PATIENT HAS LEFT AGAINST MEDICAL ADVICE FROM THIS FACILITY Disclaimer: this is a brief summary of hospital course; for further detail please refer to full record in EMR Medical Problems upon discharge: New onset diabetes w/ neuropathy, chronic diabetic ulcer of R 1st Toe, Hypertension, Anxiety Patient is a 47M who presented to [facility] ED on 06/04 w/ c/o of a Chronic R great toe ulcer. Upon presentation patient reported that an ulcer on his R toe has been worsening over the past 5 months after he began scraping off skin from his right foot. Patient noticed that the wound has been non hleaing and had left AMA from a ED after being told he would be admitted. Patient subsequently returned and accepted to be admitted at this time. Patient was also found to be hyperglycemic on presentation. He reports that he is not diabetic however he does know his sugars run high. Upon admission, Podiatry was consulted who recommended MRI of the foot to r/o osteo. Patient has had a hx of being MRSA positive. During hospital course patient began c/o of chest pain and EKG/Troponins showed no evidence of cardiac ischemia. Patient began refusing MRI night prior to AMA. Upon evaluation this morning patient reported he was clausterphobic and did not want to go into the MRI machine; patient was explained medical necessity of MRI testing ot r/o osteo however he was told that discharge would depend on MRI findings. Patient did not agree to plan of care and decided to leave AMA. Please note during hospital course patient was also found to be hypertensive and started on lisinopril. He also showed poor insight into his medical conditions; did not want to believe he was diabetic and required insulin despite an A1C of 10.6 While explaining benefits of continued inpatient admission, and risks of leaving AMA; patient then refused to sign AMA form and eloped from facility. No Rx were given. Patient is not medically clear for discharge at this time. Discharge Plan - Follow Up Plan Condition: STABLE Disposition: AGAINST MEDICAL ADVICE <Solomon Mazariegos - Last Filed: 06/06/18 17:51> Provider - Provider Date of Admission: 06/05/18 00:00 Attending physician: Solomon Mazariegos MD Consults: 06/05/18 01:41 Infectious Disease Consult Routine Comment: Consulting Provider: Stewart Salvador Consulting Physician: Stewart Salvador Reason for Consult: MRSA and acinobacter diabetic foot ulcer, allergic to sulfa abx Podiatry Consult Routine Comment: Consulting Provider: Serg Cartagena Consulting Physician: Serg Cartagena Reason for Consult: Diabetic foot ulcer Hospital Course - Lab Results Lab Results: Most Recent Lab Values WBC 8.4 10^3/uL (4.5-11.0) 06/06/18 06:45 RBC 5.88 10^6/uL (3.5-6.1) 06/06/18 06:45 Hgb 16.5 g/dL (14.0-18.0) 06/06/18 06:45 Hct 46.8 % (42.0-52.0) 06/06/18 06:45 MCV 79.6 fl (80.0-105.0) L 06/06/18 06:45 MCH 28.1 pg (25.0-35.0) 06/06/18 06:45 MCHC 35.3 g/dl (31.0-37.0) 06/06/18 06:45 RDW 13.5 % (11.5-14.5) 06/06/18 06:45 Plt Count 214 10^3/uL (120.0-450.0) 06/06/18 06:45 MPV 10.2 fl (7.0-11.0) 06/06/18 06:45 Gran % 58.8 % (50.0-68.0) 06/06/18 06:45 Lymph % (Auto) 32.0 % (22.0-35.0) 06/06/18 06:45 Bartholomew % (Auto) 7.0 % (1.0-6.0) H 06/06/18 06:45 Eos % (Auto) 2.1 % (1.5-5.0) 06/06/18 06:45 Baso % (Auto) 0.1 % (0.0-3.0) 06/06/18 06:45 Gran # 4.92 (1.4-6.5) 06/06/18 06:45 Lymph # (Auto) 2.7 (1.2-3.4) 06/06/18 06:45 [place]olomew # (Auto) 0.6 (0.1-0.6) 06/06/18 06:45 Eos # (Auto) 0.2 (0.0-0.7) 06/06/18 06:45 Baso # (Auto) 0.01 K/mm3 (0.0-2.0) 06/06/18 06:45 PT 11.5 SECONDS (9.4-12.5) 06/04/18 23:30 INR 1.01 06/04/18 23:30 APTT 29.1 Seconds (25.1-36.5) 06/04/18 23:30 Sodium 138 mmol/L (132-148) 06/06/18 06:45 Potassium 3.9 mmol/L (3.6-5.0) 06/06/18 06:45 Chloride 104 mmol/L (98-107) 06/06/18 06:45 Carbon Dioxide 25 mmol/L (21-33) 06/06/18 06:45 Anion Gap 13 (10-20) 06/06/18 06:45 BUN 12 mg/dL (7-21) 06/06/18 06:45 Creatinine 0.8 mg/dl (0.8-1.5) 06/06/18 06:45 Est GFR ( Amer) > 60 06/06/18 06:45 Est GFR (Non-Af Amer) > 60 06/06/18 06:45 POC Glucose (mg/dL) 150 mg/dL (65-110) H 06/06/18 06:36 Random Glucose 189 mg/dL (70-110) H 06/06/18 06:45 Hemoglobin A1c 10.6 % (4.2-6.5) H 06/06/18 06:45 Calcium 9.3 mg/dL (8.4-10.5) 06/06/18 06:45 Total Bilirubin 0.8 mg/dL (0.2-1.3) 06/06/18 06:45 AST 22 U/L (17-59) 06/06/18 06:45 ALT 45 U/L (7-56) 06/06/18 06:45 Alkaline Phosphatase 71 U/L (38-126) 06/06/18 06:45 Troponin I < 0.01 ng/mL 06/06/18 02:40 Total Protein 7.7 g/dL (5.8-8.3) 06/06/18 06:45 Albumin 4.3 g/dL (3.0-4.8) 06/06/18 06:45 Globulin 3.4 gm/dL 06/06/18 06:45 Albumin/Globulin Ratio 1.3 (1.1-1.8) 06/06/18 06:45 Attending/Attestation - Attestation I have personally seen and examined this patient.: Yes I have fully participated in the care of the patient.: Yes I have reviewed all pertinent clinical information, including history, physical exam and plan: Yes Notes (Text): 06/06/18 17:44 Attending note; Patient seen and examined with resident. Patient is alert and awake. Denies any fevers, chills. Denies any chest pain, shortness of breath. Denies any abdominal pain, nausea, vomiting. Tolerating diet well. Days any headache. Patient is a 47 year old male who presented to [facility] ED on 06/04 with history of a Chronic Right great toe ulcer. Upon presentation patient reported that an ulcer on his R toe has been worsening over the past 5 months after he began scraping off skin from his right foot. Patient noticed that the wound has been non hleaing and had left AM. The patient was called back for admission with MRSA infection. Started on IV vancomycin. Diabetes; patient refused to accept that he is a diabetic. Hemoglobin A1c is 10.9. Education given. Dietary education given. Dietitian evaluation/diabetic nurse evaluation requested. ID and podiatry evaluation appreciated. MRI of the foot ordered. Patient refused multiple times. Had a long conversation/time spent over 35 minutes to explain the need for test and treatment. Patient did not wait for the resident and eloped without prescription.
== END 2018-06-06 11:13 | disposition left against medical advice (07) | DRG 294 ==
LOC: ED 22:22 → ERH 06-05 → 5RNO 06-05 03:02
PROVIDERS: ADMIT Internal Medicine; ATTEND Internal Medicine
DX: E11.621 Type 2 diabetes mellitus with foot ulcer (principal); E11.40 Type 2 diabetes mellitus with diabetic neuropathy, unspecified; L97.519 Non-pressure chronic ulcer of other part of right foot with unspecified severity; E11.65 Type 2 diabetes mellitus with hyperglycemia; B95.62 Methicillin resistant Staphylococcus aureus infection as the cause of diseases classified elsewhere; F41.9 Anxiety disorder, unspecified; I10 Essential (primary) hypertension; Z87.891 Personal history of nicotine dependence; Z88.0 Allergy status to penicillin; Z88.2 Allergy status to sulfonamides; Z90.49 Acquired absence of other specified parts of digestive tract

== ENCOUNTER 2018-10-27 22:11 | Emergency (ER) | payer MEDICAID, OTHER ==
[2018-10-27 22:11] VITALS: BMI 38.7
[2018-10-27 22:21] VITALS: RESP 18
--- NOTE | 2018-10-27 22:35 | ED PDOC ---
Arrival/HPI - General Chief Complaint: Chest Pain Time Seen by Provider: 10/27/18 22:14 Historian: Patient - History of Present Illness Narrative History of Present Illness (Text): 10/27/18 22:32 47 year old male, whose past medical history includes diabetes (currently not on any medication) presents to the emergency department with chest pain, for one hour. Patient states he was fighting with his we he began to feel a p inching pain in the left side of his chest and left armpit. Patient states at times the pain travels to his left elbow. Patient denies any history of smoking, alcohol use, or drug use. Patient denies any family cardiac history. Patient denies any fevers, chills, headache, dizziness, diaphoresis, abdominal pain, nausea, vomiting, diarrhea, back pain, neck pain, or any other complaint. PMD: Dr. Ross Proctor Time/Duration: 1 hour Symptom Onset: Sudden Symptom Course: Unchanged, Intermittent Quality: Stabbing Activities at Onset: Light Context: Home Past Medical History - Provider Review Nursing Documentation Reviewed: Yes - Infectious Disease Hx of Infectious Diseases: None - Tetanus Immunization Tetanus Immunization: Unknown - Past Medical History Past Medical History: No Previous - Cardiac Hx Hypertension: Yes - Pulmonary Hx Bronchitis: Yes - Integumentary Other/Comment: staph A of skin - Musculoskeletal/Rheumatological Hx Falls: No - Psychiatric Hx Anxiety: Yes Hx Depression: No Hx Substance Use: No - Surgical History Hx Appendectomy: Yes (1969) Hx Tonsillectomy: Yes - Anesthesia Hx Anesthesia: Yes Hx Anesthesia Reactions: No Hx Malignant Hyperthermia: No - Suicidal Assessment Feels Threatened In Home Enviroment: No Family/Social History - Physician Review Nursing Documentation Reviewed: Yes Family/Social History: No Known Family HX Smoking Status: Never Smoked Hx Alcohol Use: No Hx Substance Use: No Hx Substance Use Treatment: No Allergies/Home Meds Allergies/Adverse Reactions: Allergies Penicillins Allergy (Verified 10/27/18 23:29) ANAPHYLAXIS Sulfa (Sulfonamide Antibiotics) Allergy (Verified 10/27/18 23:29) NAUSEA Review of Systems - Physician Review All systems were reviewed & negative as marked: Yes - Review of Systems Constitutional: absent: Fevers, Night Sweats Cardiovascular: Chest Pain Gastrointestinal: absent: Abdominal Pain, Diarrhea, Nausea, Vomiting Musculoskeletal: absent: Back Pain, Neck Pain Neurological: absent: Headache, Dizziness Endocrine: absent: Diaphoresis Physical Exam - Physical Exam Narrative Physical Exam (Text): 10/27/18 22:45 Gen: VS reviewed, alert, well developed, well nourished, nontoxic, mild distress Eye: EOMI, PERRL ENT: normal pharynx. Neck: no JVD, supple, no adenopathy CV: regular rate, regular rhythm, no rubs,no murmur, S1, S2 Pulm: no distress, clear to auscultation, no wheeze, no rhonchi, breath sounds equal, no rales Abd: soft, nontender, no guarding, no rebound, no rigidity Ext: no edema Skin: good color, no rash, no cyanosis Psych: responds appropriately to questions, normal affect Neuro: oriented x3, CN2-12 intact grossly, motor intact, sensation intact Vital Signs Reviewed: Yes Vital Signs Pulse Resp BP Pulse Ox 10/27/18 22:21 93 H 18 137/87 96 Blood Pressure: Normal Pulse: Regular Respiratory Rate: Normal Appearance: Positive for: Well-Appearing, Non-Toxic, Comfortable Pain Distress: None Mental Status: Positive for: Alert and Oriented X 3 Medical Decision Making ED Course and Treatment: 10/27/18 22:47 Impression: 47 year old male presents with chest pain and left axilla pain. Plan: -- EKG -- CMP, Lipase, Lipid Panel, Trop -- CBC -- Chest X-ray -- Reassess and disposition Prior Visits: Notes and results from previous visits were reviewed. 10/28/18 02:59 patient seen for low risk chest pain, heart score = 2, no significant clinical suspicion for aortic dissection or PE. patient discharge in stable condition, refer to cardiology. - RAD Interpretation Narrative RAD Interpretations (Text): 10/27/18 22:56 cxr my read: no focal infiltrate, no ptx, no pleural effusion Radiology Orders: 10/27/18 22:29 CHEST PORTABLE [RAD] Stat - EKG Interpretation EKG Interpretation (Text): 10/27/18 23:01 Normal sinus rhythm @ 97bpm Normal QRS, Normal axis, No T wave abnormalities 10/27/18 23:47 ekg #2: nsr at 87 bpm, nml qrs, nml axis, no acute sttw abn Interpreted by ED Physician: Yes Type: 12 lead EKG - Scribe Statement The provider has reviewed the documentation as recorded by the Scribe Serg Wang All medical record entries made by the Scribe were at my direction and personally dictated by me. I have reviewed the chart and agree that the record accurately reflects my personal performance of the history, physical exam, medical decision making, and the department course for this patient. I have also personally directed, reviewed, and agree with the discharge instructions and disposition. Disposition/Present on Arrival - Present on Arrival Any Indicators Present on Arrival: No History of DVT/PE: No History of Uncontrolled Diabetes: No Urinary Catheter: No History of Decub. Ulcer: No History Surgical Site Infection Following: None - Disposition Have Diagnosis and Disposition been Completed?: Yes Diagnosis: Chest pain Disposition: HOME/ ROUTINE Disposition Time: 22:29 Patient Plan: Discharge Condition: STABLE Discharge Instructions (ExitCare): Chest Pain (ED) Additional Instructions: return for any new or worsening symptoms. follow up with the granite setter as soon as possible for further testing-you may need a stress test. Referrals: Candida Howe MD [Primary Care Provider] - Follow up with primary Surinder Salomon MD [Staff Provider] - Follow up with primary [facility] [Outside] - Follow up with primary Forms: [employer] (Danish)
[2018-10-27 23:05] LABS: BASO # 0.01 K/mm3 (0.0-2.0); BASO % 0.1 % (0.0-3.0); EOS # 0.2 (0.0-0.7); EOS % 1.9 % (1.5-5.0); LYMPH % 25.4 % (22.0-35.0); MEAN CELL VOLUME 79.6 fl (80.0-105.0); MEAN CORPUSCULAR HEMOGLOBIN 26.8 pg (25.0-35.0); MEAN CORPUSCULAR HGB CONC 33.7 g/dl (31.0-37.0); MEAN PLATELET VOLUME 10.4 fl (7.0-11.0); MONO # 0.5 (0.1-0.6); MONO % 5.8 % (1.0-6.0); RBC 5.59 10^6/uL (3.5-6.1); RED CELL DISTRIBUTION WIDTH 14.1 % (11.5-14.5); WHITE BLOOD COUNT 7.9 10^3/uL (4.5-11.0)
[2018-10-27 23:17] LABS: ALB/GLOB RATIO 1.2 (1.1-1.8); ALT/SGPT 26 U/L (7-56); AST/SGOT 21 U/L (17-59); BLOOD UREA NITROGEN 10 mg/dL (7-21); CALCIUM 8.9 mg/dL (8.4-10.5); GFR NON-AFRICAN AMERICAN > 60; HDL CHOLESTEROL 27 mg/dL (29-60); LIPASE 49 U/L (23-300)
[2018-10-27 23:22] LABS: LDL CHOLESTEROL 83 mg/dL (0-129)
[2018-10-27 23:25] LABS: TROPONIN I < 0.01 ng/mL
[2018-10-27] MEDS ORDERED: Insulin Regular 1 UNITS/0.01 ML ML IVP STA ×2 (23:30→23:52)
[2018-10-27] MEDS ORDERED: Sodium Chloride 0.9% 1,000 ML IV STA (23:30)
[2018-10-28 03:14] VITALS: BP 142/72; PULSE 85; TEMP 98.2; O2SAT 98
--- NOTE | 2018-10-28 09:25 | RAD ---
Date of service: 10/27/2018 HISTORY: chest pain COMPARISON: 08/25/2013 TECHNIQUE: 1 view obtained. FINDINGS: LUNGS: No active pulmonary disease. PLEURA: No significant pleural effusion identified, no pneumothorax apparent. CARDIOVASCULAR: No aortic atherosclerotic calcification present. Normal cardiac size. No pulmonary vascular congestion. OSSEOUS STRUCTURES: No significant abnormalities. VISUALIZED UPPER ABDOMEN: Normal. OTHER FINDINGS: None. IMPRESSION: No active disease.
--- NOTE | 2018-10-28 11:36 | CARD ---
APPROVED REPORT Date of service: 10/27/2018 EKG Measurement Heart [id number] [id number] <Conclusion> Normal sinus rhythm Normal ECG
--- NOTE | 2018-10-28 11:39 | CARD ---
APPROVED REPORT Date of service: 10/27/2018 EKG Measurement Heart [id number] IN [id number] <Conclusion> Normal sinus rhythm Normal ECG
== END 2018-10-28 03:13 | disposition home or self-care (01) ==
LOC: ED 22:11
DX: R07.9 Chest pain, unspecified (principal); E11.9 Type 2 diabetes mellitus without complications; I10 Essential (primary) hypertension
CPT/HCPCS: 71045; 80053; 80061; 83690; 84484; 85025; 93005; 96374; 99284; J7030

== ENCOUNTER 2018-11-11 18:55 | Inpatient (IN) | payer MEDICAID ==
[2018-11-11] MEDS ORDERED: TDAP Vaccine 0.5 mL Syr IM ONE (19:56)
[2018-11-11] MEDS ORDERED: Vancomycin 1gm in NS 250ml 1 GM/250 ML BAG IVPB STA (20:00)
[2018-11-11] MEDS ORDERED: Cefepime 1gm in NS 100ml 1 GM/100 ML BAG IVPB STA (20:11)
--- NOTE | 2018-11-11 20:22 | ED PDOC ---
Arrival/HPI - General Chief Complaint: Lower Extremity Problem/Injury Time Seen by Provider: 11/11/18 19:09 Historian: Patient - History of Present Illness Narrative History of Present Illness (Text): 11/11/18 20:17 47 year old male, whose past medical history includes diabetes(on no medication), presents to the emergency department complaining of an ulcer to the bottom of his right great toe. Patient reports it is now red, swollen and believes it is infected. He reports he had the ulcer "for awhile now". Patient denies any fever, chills, nausea, vomiting, numbness, decrease ROM, or any other complaints. Symptom Onset: Gradual Symptom Course: Unchanged Activities at Onset: Light Context: Home Past Medical History - Provider Review Nursing Documentation Reviewed: Yes - Infectious Disease Hx of Infectious Diseases: None - Tetanus Immunization Tetanus Immunization: Unknown - Past Medical History Past Medical History: No Previous - Cardiac Hx Cardiac Disorders: Yes Hx Hypertension: Yes - Pulmonary Hx Respiratory Disorders: Yes Hx Bronchitis: Yes - Endocrine/Metabolic Hx Endocrine Disorders: Yes Hx Diabetes Mellitus Type 2: Yes ("borderline") - Integumentary Other/Comment: staph A of skin - Musculoskeletal/Rheumatological Hx Falls: No - Psychiatric Hx Psychophysiologic Disorder: Yes Hx Anxiety: Yes Hx Depression: No Hx Substance Use: No - Surgical History Hx Appendectomy: Yes (1969) Hx Tonsillectomy: Yes - Anesthesia Hx Anesthesia: Yes Hx Anesthesia Reactions: No Hx Malignant Hyperthermia: No - Suicidal Assessment Feels Threatened In Home Enviroment: No Family/Social History - Physician Review Nursing Documentation Reviewed: Yes Family/Social History: No Known Family HX Smoking Status: Never Smoked Hx Alcohol Use: No Hx Substance Use: No Hx Substance Use Treatment: No Allergies/Home Meds Allergies/Adverse Reactions: Allergies Penicillins Allergy (Verified 11/11/18 19:20) ANAPHYLAXIS Sulfa (Sulfonamide Antibiotics) Allergy (Verified 11/11/18 19:20) SWELLING Home Medications: Home Meds Medication Instructions Recorded Confirmed Cephalexin [cephalexin] 250 mg PO TID 11/11/18 11/11/18 Clindamycin [Clindamycin HCl] 3 cap PO Q8 11/11/18 11/11/18 Review of Systems - Physician Review All systems were reviewed & negative as marked: Yes - Review of Systems Constitutional: absent: Fevers, Other (chills) Neurological: absent: Other ((-)numbness (-) Decrease ROM) Physical Exam Vital Signs Reviewed: Yes Vital Signs Temp Pulse Resp BP Pulse Ox 11/11/18 19:20 100.6 F H 132 H 22 127/79 97 Temperature: Febrile Blood Pressure: Normal Pulse: Tachycardic Respiratory Rate: Normal Appearance: Positive for: Well-Appearing, Non-Toxic, Comfortable Pain Distress: None Mental Status: Positive for: Alert and Oriented X 3 - Systems Exam Head: Present: Atraumatic, Normocephalic Pupils: Present: PERRL Extroacular Muscles: Present: EOMI Conjunctiva: Present: Normal Mouth: Present: Moist Mucous Membranes Neck: Present: Normal Range of Motion Respiratory/Chest: Present: Clear to Auscultation, Good Air Exchange. No: Respiratory Distress, Accessory Muscle Use Cardiovascular: Present: Regular Rate and Rhythm, Normal S1, S2. No: Murmurs Abdomen: No: Tenderness, Distention, Peritoneal Signs Back: Present: Normal Inspection Upper Extremity: Present: Normal Inspection. No: Cyanosis, Edema Lower Extremity: Present: Edema (to the right great toe), Tenderness (to the right great toe), Erythema (to the right great toe), Other (2 by 2cm deep ulcer with discharge ) Neurological: Present: GCS=15, Speech Normal Skin: Present: Warm, Dry, Normal Color. No: Rashes Psychiatric: Present: Alert, Oriented x 3, Normal Insight, Normal Concentration Medical Decision Making ED Course and Treatment: 11/11/18 20:32 Impression: 47 year old male presents complaining of an ulcer to bottom of his right great toe. Plan: -- VBG -- Labs -- Boostrix Vaccine, Maxipime, Tylenol, Vancomycin -- Blood Culture, Would culture -- Right foot x-ray -- Reassess and disposition Progress Notes: Labs reviewed : wbc 14.6 w/ L shift, lactate 2.1, glucose 276. XR R foot : +evidence of osteo seen on XR of the great toe (compared to last XR of the same toe done in 05/2018) Code sepsis called as the patient met all sepsis criteria. NS bolus IV ordered. Vancomycin IV and cefepime IV ordered. Results and diagnosis discussed with the patient. He agrees for plan for admission. Case discussed with Dr. Lam and the medical device sales, they agree with plan for admission under the hospitalist service. - Lab Interpretations I have reviewed the lab results: Yes - RAD Interpretation Radiology Orders: 11/11/18 19:54 FOOT RIGHT GREAT TOE ROUTINE [RAD] Stat Merchandise Carrier: ED Physician - Medication Orders Current Medication Orders: Vancomycin HCl (Vancomycin 1gm) 1 gm in 250 mls @ 167 mls/hr IVPB STAT STA; Protocol Stop: 11/11/18 21:29 Cefepime HCl (Maxipime 1gm) 1 gm in 100 mls @ 100 mls/hr IVPB STAT STA; Protocol Stop: 11/11/18 21:10 Discontinued Medications Acetaminophen (Tylenol 325mg Tab) 975 mg PO STAT STA Stop: 11/11/18 20:16 Tetanus/Reduced Diphtheria/Acell Pertussis (Boostrix Vaccine Inj) 0.5 ml IM .ONCE ONE Stop: 11/11/18 19:57 - PA / [employer] / Resident Statement MD/DO has reviewed & agrees with the documentation as recorded. - Scribe Statement The provider has reviewed the documentation as recorded by the Karmen Kathleen Provider Scribe Attestation: All medical record entries made by the Karmen were at my direction and personally dictated by me. I have reviewed the chart and agree that the record accurately reflects my personal performance of the history, physical exam, medical decision making, and the department course for this patient. I have also personally directed, reviewed, and agree with the discharge instructions and disposition. Disposition/Present on Arrival - Present on Arrival Any Indicators Present on Arrival: No History of DVT/PE: No History of Uncontrolled Diabetes: No Urinary Catheter: No History of Decub. Ulcer: No History Surgical Site Infection Following: None - Disposition Have Diagnosis and Disposition been Completed?: Yes Diagnosis: Sepsis, Uncontrolled diabetes mellitus, Diabetic foot infection Disposition: HOSPITALIZED Disposition Time: 20:50 Patient Plan: Admission Patient Problems: Current Active Problems Problem Status Onset Diabetic foot infection Acute Sepsis Acute Uncontrolled diabetes mellitus Acute Condition: STABLE
[2018-11-11 20:24] LABS: BASO # 0.01 K/mm3 (0.0-2.0); BASO % 0.1 % (0.0-3.0); EOS # 0.1 (0.0-0.7); EOS % 0.5 % (1.5-5.0); HEMOGLOBIN 15.1 g/dL (14.0-18.0); LYMPH # 1.6 (1.2-3.4); LYMPH % 10.9 % (22.0-35.0); MEAN CELL VOLUME 78.5 fl (80.0-105.0); MEAN CORPUSCULAR HEMOGLOBIN 27.1 pg (25.0-35.0); MEAN CORPUSCULAR HGB CONC 34.6 g/dl (31.0-37.0); MEAN PLATELET VOLUME 9.7 fl (7.0-11.0); MONO # 0.7 (0.1-0.6); MONO % 5.1 % (1.0-6.0); RBC 5.57 10^6/uL (3.5-6.1); RED CELL DISTRIBUTION WIDTH 13.9 % (11.5-14.5); WHITE BLOOD COUNT 14.6 10^3/uL (4.5-11.0)
[2018-11-11 20:33] LABS: VENOUS BLOOD GAS BASE EXCESS 1.4 mmol/L (0.0-2.0); VENOUS BLOOD GAS PO2 83 mm/Hg (30-55); VENOUS BLOOD PH 7.46 (7.32-7.43)
[2018-11-11 20:34] LABS: INR 1.22; PARTIAL THROMBOPLASTIN TIME 33.6 Seconds (26.9-38.3); PROTHROMBIN TIME 13.5 SECONDS (9.4-12.5)
[2018-11-11] MEDS ORDERED: Sodium Chloride 0.9% 1,000 ML IV STA (20:38)
[2018-11-11 20:44] LABS: ALB/GLOB RATIO 1.2 (1.1-1.8); ALT/SGPT 22 U/L (7-56); AST/SGOT 26 U/L (17-59); BLOOD UREA NITROGEN 19 mg/dL (7-21); CALCIUM 9.4 mg/dL (8.4-10.5); GFR NON-AFRICAN AMERICAN > 60
--- NOTE | 2018-11-11 23:56 | PCM.SEPTIC ---
<Zelalem Avitia - Last Filed: 11/11/18 23:55> Sepsis Progress Note - Reassessment Type Date of Evaluation: 11/11/18 Time of Evaluation: 23:55 Reassessment Type: Non-invasive reassessment - Non Invasive Reassessment Were the most recent vital sign reviewed: Yes Vital Sign (Latest): Temp Pulse Resp BP Pulse Ox 99.0 F 99 H 18 122/60 95 11/11/18 21:51 11/11/18 21:51 11/11/18 21:51 11/11/18 21:51 11/11/18 21:51 Cardiovascular: Yes: Regular Rate, Rhythm Respiratory: Yes: Normal Breath Sounds. No: Crackles, Rales, Rhonchi, Stridor, Wheezing Capillary Refill: Normal (Less than 2 sec) Pulses: Normal Radial, Normal Dorsalis Pedis, Normal Posterior Tibialis Skin: Warm, Dry, Other (Right Toe swelling noted. ) <Symone Lam - Last Filed: 11/12/18 19:02> Sepsis Progress Note - Non Invasive Reassessment Vital Sign (Latest): Temp Pulse Resp BP Pulse Ox 97.8 F 89 18 152/89 H 98 11/12/18 14:00 11/12/18 14:00 11/12/18 14:00 11/12/18 14:00 11/12/18 14:00 Attending/Attestation - Attestation I have personally seen and examined this patient.: Yes I have fully participated in the care of the patient.: Yes I have reviewed all pertinent clinical information, including history, physical exam and plan: Yes
[2018-11-12 00:01] LABS: VENOUS BLOOD GAS BASE EXCESS 0.5 mmol/L (0.0-2.0); VENOUS BLOOD GAS PO2 108 mm/Hg (30-55); VENOUS BLOOD PH 7.43 (7.32-7.43)
[2018-11-12 00:35] VITALS: BMI 35.2
--- NOTE | 2018-11-12 02:07 | CP.PCM.HP ---
<Zelalem Avitia - Last Filed: 11/12/18 03:04> History of Present Illness - History of Present Illness History of Present Illness: Zelalem Avitia, PGY1 H&P for Dr. Lma cc: "Right Toe Ulcer" Patient is a 47 year old male, whose past medical history includes Uncontrolled DM (Last Hgb A1c 10.6 05/31; not on meds) and Anxiety who presents to the emergency department complaining of an ulcer to the bottom of his right great toe. Patient says he has had this ulcer in the past and has had prior admissions for it. Patient reports that it is now red and swollen. He endorses subjective fever, chills as well. Denies headache, cp, sob, n/v/d, bowel/bladder changes. Upon last admission 05/2018, patient had the right toe ulcer which was noted to be +MRSA at that time. Patient was also refusing further workup for his ulcer including MRI of the foot. He was also not convinced that he had DM and refused to take diabetes medication despite education. A full 12 point ROS was conducted and unremarkable except as stated above. PMD: Shyam Pmhx: Uncontrolled DM (Last Hgb A1c 10.6 05/31; not on meds) and Anxiety Pshx: Appendectomy 20 years ago Meds: Denies All: Sulfa drugs- rash, Penicillins Social: quit smoking 25 years ago, denies any etoh or illicit drug use Fam: Non-contributory Present on Admission - Present on Admission Any Indicators Present on Admission: Yes History of Uncontrolled Diabetes: Yes Review of Systems - Review of Systems All systems: reviewed and no additional remarkable complaints except (as per HPI) Past Patient History - Infectious Disease Hx of Infectious Diseases: None - Tetanus Immunizations Tetanus Immunization: Unknown - Past Social History Smoking Status: Never Smoked - CARDIAC Hx Cardiac Disorders: Yes Hx Hypertension: Yes - PULMONARY Hx Respiratory Disorders: Yes Hx Bronchitis: Yes - ENDOCRINE/METABOLIC Hx Endocrine Disorders: Yes Hx Diabetes Mellitus Type 2: Yes ("borderline") - INTEGUMENTARY Other/Comment: staph A of skin - MUSCULOSKELETAL/RHEUMATOLOGICAL Hx Falls: No - PSYCHIATRIC Hx Psychophysiologic Disorder: Yes Hx Anxiety: Yes Hx Depression: No Hx Substance Use: No - SURGICAL HISTORY Hx Appendectomy: Yes (1969) Hx Tonsillectomy: Yes - ANESTHESIA Hx Anesthesia: Yes Hx Anesthesia Reactions: No Hx Malignant Hyperthermia: No Meds Allergies/Adverse Reactions: Allergies Allergy/AdvReac Type Severity Reaction Status Date / Time Penicillins Allergy ANAPHYLAXIS Verified 11/11/18 19:20 Sulfa (Sulfonamide Allergy SWELLING Verified 11/11/18 19:20 Antibiotics) Physical Exam - Constitutional Appears: In Acute Distress - Head Exam Head Exam: ATRAUMATIC, NORMAL INSPECTION, NORMOCEPHALIC - Eye Exam Eye Exam: EOMI, Normal appearance Pupil Exam: NORMAL ACCOMODATION - ENT Exam ENT Exam: Mucous Membranes Dry - Respiratory Exam Respiratory Exam: absent: Chest Wall Tenderness, Clear to Auscultation Bi lateral, Rales, Rhonchi, Wheezes - Cardiovascular Exam Cardiovascular Exam: RRR, +S1, +S2 - GI/Abdominal Exam GI & Abdominal Exam: Normal Bowel Sounds, Soft. absent: Distended, Firm, Guarding, Rebound, Rigid, Tenderness - Extremities Exam Extremities exam: Positive for: normal capillary refill, pedal pulses present. Negative for: calf tenderness Additional comments: Right Toe is significantly inflamed, warm to touch, with ulceration at the base of the toe. Dressing in place. - Neurological Exam Neurological exam: Alert, CN II-XII Intact, Oriented x3, Reflexes Normal - Psychiatric Exam Psychiatric exam: Normal Affect, Normal Mood - Skin Skin Exam: Dry, Intact, Normal Color, Warm Results - Vital Signs Recent Vital Signs: Last Vital Signs Temp 98.9 F 11/11/18 22:20 Pulse 92 H 11/11/18 22:20 Resp 18 11/12/18 00:16 BP 123/79 11/11/18 22:20 Pulse Ox 98 11/11/18 22:20 - Labs Result Diagrams: 11/11/18 20:12 11/11/18 20:12 Labs: Laboratory Results - last 24 hr 11/11/18 11/11/18 11/11/18 20:12 20:12 20:12 WBC 14.6 H D RBC 5.57 Hgb 15.1 Hct 43.7 MCV 78.5 L MCH 27.1 MCHC 34.6 RDW 13.9 Plt Count 257 MPV 9.7 Neut % (Auto) 83.4 H Lymph % (Auto) 10.9 L [place] % (Auto) 5.1 Eos % (Auto) 0.5 L Baso % (Auto) 0.1 Lymph # (Auto) 1.6 [place] # (Auto) 0.7 H Eos # (Auto) 0.1 Baso # (Auto) 0.01 Absolute Neuts (auto) 12.21 H PT 13.5 H INR 1.22 APTT 33.6 pO2 VBG pH VBG pCO2 VBG HCO3 VBG Total CO2 VBG O2 Sat (Calc) VBG Base Excess VBG Potassium Sodium 133 Chloride 99 Glucose Lactate FiO2 Potassium 4.4 Carbon Dioxide 24 Anion Gap 15 BUN 19 Creatinine 0.7 L Est GFR ( Amer) > 60 Est GFR (Non-Af Amer) > 60 Random Glucose 276 H Calcium 9.4 Total Bilirubin 0.5 AST 26 ALT 22 Alkaline Phosphatase 81 Troponin I Total Protein 7.4 Albumin 4.0 Globulin 3.4 Albumin/Globulin Ratio 1.2 Venous Blood Potassium 11/11/18 11/11/18 11/11/18 20:12 20:12 23:55 WBC RBC Hgb Hct MCV MCH MCHC RDW Plt Count MPV Neut % (Auto) Lymph % (Auto) [place] % (Auto) Eos % (Auto) Baso % (Auto) Lymph # (Auto) [place] # (Auto) Eos # (Auto) Baso # (Auto) Absolute Neuts (auto) PT INR APTT pO2 83 H 108 H VBG pH 7.46 H 7.43 VBG pCO2 35.0 L 37.0 L VBG HCO3 24.9 24.6 VBG Total CO2 26.0 25.7 VBG O2 Sat (Calc) 98.5 H 99.5 H VBG Base Excess 1.4 0.5 VBG Potassium 4.5 4.0 Sodium 131.0 L 137.0 Chloride 99.0 102.0 Glucose 289 H 305 H Lactate 2.1 2.0 FiO2 21.0 21.0 Potassium Carbon Dioxide Anion Gap BUN Creatinine Est GFR ( Amer) Est GFR (Non-Af Amer) Random Glucose Calcium Total Bilirubin AST ALT Alkaline Phosphatase Troponin I < 0.01 Total Protein Albumin Globulin Albumin/Globulin Ratio Venous Blood Potassium 4.5 4.0 Assessment & Plan - Assessment and Plan (Free Text) Assessment: Patient is a 47 year old male, whose past medical history includes Uncontrolled DM (Last Hgb A1c 10.6 05/31; not on meds) and Anxiety who presents to the emergency department complaining of an ulcer to the bottom of his right great toe. Plan: Sepsis 2/2 Right Toe Ulcer - SIRS criteria met: Temp 100.6, HR 132, wbc 14.6 with source - right toe ulcer - XR r-foot: suggestive of osteo - MRI right foot ordered to confirm osteo - Given penicillin and sulfa allergy, start on vanco and merrem - IVF NS @ 150 cc/hr - Wound Cx, BCx - Procal level - +MRSA, contact precautions - ID consulted - Podiatry consulted Uncontrolled DM - ISS - Accuchecks - Diabetic diet - Hgb A1c ordered - Diabetic education ppx: - Lovenox Diet: HHD/CCD Dispo: Will admit patient to med/surg. Case was discussed and reviewed with Attending Physician, Dr. Lam. <Symone Lam - Last Filed: 11/12/18 19:02> Results - Vital Signs Recent Vital Signs: Last Vital Signs Temp 97.8 F 11/12/18 14:00 Pulse 89 11/12/18 14:00 Resp 18 11/12/18 14:00 BP 152/89 H 11/12/18 14:00 Pulse Ox 98 11/12/18 14:00 - Labs Result Diagrams: 11/11/18 20:12 11/11/18 20:12 Labs: Laboratory Results - last 24 hr 11/11/18 11/11/18 11/11/18 20:12 20:12 20:12 WBC 14.6 H D RBC 5.57 Hgb 15.1 Hct 43.7 MCV 78.5 L MCH 27.1 MCHC 34.6 RDW 13.9 Plt Count 257 MPV 9.7 Neut % (Auto) 83.4 H Lymph % (Auto) 10.9 L [place] % (Auto) 5.1 Eos % (Auto) 0.5 L Baso % (Auto) 0.1 Lymph # (Auto) 1.6 [place] # (Auto) 0.7 H Eos # (Auto) 0.1 Baso # (Auto) 0.01 Absolute Neuts (auto) 12.21 H ESR PT 13.5 H INR 1.22 APTT 33.6 pO2 VBG pH VBG pCO2 VBG HCO3 VBG Total CO2 VBG O2 Sat (Calc) VBG Base Excess VBG Potassium Sodium 133 Chloride 99 Glucose Lactate FiO2 Potassium 4.4 Carbon Dioxide 24 Anion Gap 15 BUN 19 Creatinine 0.7 L Est GFR ( Amer) > 60 Est GFR (Non-Af Amer) > 60 POC Glucose (mg/dL) Random Glucose 276 H Calcium 9.4 Total Bilirubin 0.5 AST 26 ALT 22 Alkaline Phosphatase 81 Troponin I C-Reactive Protein Total Protein 7.4 Albumin 4.0 Globulin 3.4 Albumin/Globulin Ratio 1.2 Procalcitonin Venous Blood Potassium Urine Opiates Screen Urine Methadone Screen Ur Barbiturates Screen Ur Phencyclidine Scrn Ur Amphetamines Screen U Benzodiazepines Scrn U Oth Cocaine Metabols U Cannabinoids Screen 11/11/18 11/11/18 11/11/18 20:12 20:12 23:55 WBC RBC Hgb Hct MCV MCH MCHC RDW Plt Count MPV Neut % (Auto) Lymph % (Auto) [place] % (Auto) Eos % (Auto) Baso % (Auto) Lymph # (Auto) [place] # (Auto) Eos # (Auto) Baso # (Auto) Absolute Neuts (auto) ESR PT INR APTT pO2 83 H 108 H VBG pH 7.46 H 7.43 VBG pCO2 35.0 L 37.0 L VBG HCO3 24.9 24.6 VBG Total CO2 26.0 25.7 VBG O2 Sat (Calc) 98.5 H 99.5 H VBG Base Excess 1.4 0.5 VBG Potassium 4.5 4.0 Sodium 131.0 L 137.0 Chloride 99.0 102.0 Glucose 289 H 305 H Lactate 2.1 2.0 FiO2 21.0 21.0 Potassium Carbon Dioxide Anion Gap BUN Creatinine Est GFR ( Amer) Est GFR (Non-Af Amer) POC Glucose (mg/dL) Random Glucose Calcium Total Bilirubin AST ALT Alkaline Phosphatase Troponin I < 0.01 C-Reactive Protein Total Protein Albumin Globulin Albumin/Globulin Ratio Procalcitonin Venous Blood Potassium 4.5 4.0 Urine Opiates Screen Urine Methadone Screen Ur Barbiturates Screen Ur Phencyclidine Scrn Ur Amphetamines Screen U Benzodiazepines Scrn U Oth Cocaine Metabols U Cannabinoids Screen 11/12/18 11/12/18 11/12/18 00:00 07:00 07:00 WBC RBC Hgb Hct MCV MCH MCHC RDW Plt Count MPV Neut % (Auto) Lymph % (Auto) [place] % (Auto) Eos % (Auto) Baso % (Auto) Lymph # (Auto) [place] # (Auto) Eos # (Auto) Baso # (Auto) Absolute Neuts (auto) ESR 42 H PT INR APTT pO2 VBG pH VBG pCO2 VBG HCO3 VBG Total CO2 VBG O2 Sat (Calc) VBG Base Excess VBG Potassium Sodium Chloride Glucose Lactate FiO2 Potassium Carbon Dioxide Anion Gap BUN Creatinine Est GFR ( Amer) Est GFR (Non-Af Amer) POC Glucose (mg/dL) Random Glucose Calcium Total Bilirubin AST ALT Alkaline Phosphatase Troponin I C-Reactive Protein 73.20 H Total Protein Albumin Globulin Albumin/Globulin Ratio Procalcitonin 0.24 Venous Blood Potassium Urine Opiates Screen Urine Methadone Screen Ur Barbiturates Screen Ur Phencyclidine Scrn Ur Amphetamines Screen U Benzodiazepines Scrn U Oth Cocaine Metabols U Cannabinoids Screen 11/12/18 11/12/18 11/12/18 07:11 11:14 15:00 WBC RBC Hgb Hct MCV MCH MCHC RDW Plt Count MPV Neut % (Auto) Lymph % (Auto) [place] % (Auto) Eos % (Auto) Baso % (Auto) Lymph # (Auto) [place] # (Auto) Eos # (Auto) Baso # (Auto) Absolute Neuts (auto) ESR PT INR APTT pO2 VBG pH VBG pCO2 VBG HCO3 VBG Total CO2 VBG O2 Sat (Calc) VBG Base Excess VBG Potassium Sodium Chloride Glucose Lactate FiO2 Potassium Carbon Dioxide Anion Gap BUN Creatinine Est GFR ( Amer) Est GFR (Non-Af Amer) POC Glucose (mg/dL) 241 H 225 H Random Glucose Calcium Total Bilirubin AST ALT Alkaline Phosphatase Troponin I C-Reactive Protein Total Protein Albumin Globulin Albumin/Globulin Ratio Procalcitonin Venous Blood Potassium Urine Opiates Screen Negative Urine Methadone Screen Negative Ur Barbiturates Screen Negative Ur Phencyclidine Scrn Negative Ur Amphetamines Screen Negative U Benzodiazepines Scrn Negative U Oth Cocaine Metabols Negative U Cannabinoids Screen Negative 11/12/18 16:01 WBC RBC Hgb Hct MCV MCH MCHC RDW Plt Count MPV Neut % (Auto) Lymph % (Auto) [place] % (Auto) Eos % (Auto) Baso % (Auto) Lymph # (Auto) [place] # (Auto) Eos # (Auto) Baso # (Auto) Absolute Neuts (auto) ESR PT INR APTT pO2 VBG pH VBG pCO2 VBG HCO3 VBG Total CO2 VBG O2 Sat (Calc) VBG Base Excess VBG Potassium Sodium Chloride Glucose Lactate FiO2 Potassium Carbon Dioxide Anion Gap BUN Creatinine Est GFR ( Amer) Est GFR (Non-Af Amer) POC Glucose (mg/dL) 289 H Random Glucose Calcium Total Bilirubin AST ALT Alkaline Phosphatase Troponin I C-Reactive Protein Total Protein Albumin Globulin Albumin/Globulin Ratio Procalcitonin Venous Blood Potassium Urine Opiates Screen Urine Methadone Screen Ur Barbiturates Screen Ur Phencyclidine Scrn Ur Amphetamines Screen U Benzodiazepines Scrn U Oth Cocaine Metabols U Cannabinoids Screen Attending/Attestation - Attestation I have personally seen and examined this patient.: Yes I have fully participated in the care of the patient.: Yes I have reviewed all pertinent clinical information: Yes Notes (Text): 11/12/18 19:02 Seen and examined. Discussed with resident. A&P as above
[2018-11-12] MEDS: Sodium Chloride 0.9% 1,000 ML IV SCH ×3 (02:31→17:15)
[2018-11-12] MEDS: Insulin Lispro (humaLOG) MEDIUM Coverage SC SCH ×4 (08:56→21:54)
[2018-11-12] MEDS: Vancomycin 1gm in NS 250ml 1 GM/250 ML BAG IVPB SCH ×2 (08:56→20:26)
[2018-11-12] MEDS: Enoxaparin 40 mg Syringe SC SCH (09:05)
[2018-11-12] MEDS ORDERED: Dextrose 50% SYRINGE Inj (50 ml) IV PRN (09:31)
[2018-11-12] MEDS ORDERED: Meropenem IV 1 gm in NS 1 GM/50 ML BAG IVPB SCH (10:00)
[2018-11-12] MEDS ORDERED: Vancomycin 1gm in NS 250ml 1 GM/250 ML BAG IVPB SCH (10:00)
--- NOTE | 2018-11-12 10:45 | RAD ---
PROCEDURE: Radiographs of the right great toe. TECHNIQUE:: AP radiograph of the right foot, with oblique and lateral view of the right great toe. COMPARISON: Right foot radiographs dated 06/01/2018 TECHNIQUE: 3 views obtained. FINDINGS: BONES: No acute fracture. Questionable fracture of the medial base of the 1st distal phalanx. Questionable periosteal reaction JOINTS: Normal. SOFT TISSUES: Plantar ulcer deep to the 1st interphalangeal joint. OTHER FINDINGS: None. IMPRESSION: Probable intra-articular fracture of the medial base of the 1st distal phalanx. Questionable periosteal reaction. Correlate with history of trauma. Infection/osteomyelitis could also have this appearance.
[2018-11-12] MEDS: Meropenem IV 1 gm in NS 1 GM/50 ML BAG IVPB SCH ×2 (14:45→21:26)
[2018-11-12 16:58] LABS: BARBITURATES, UR NEGATIVE (NEGATIVE); BENZODIAZEPINES, UR NEGATIVE (NEGATIVE); OPIATES, UR NEGATIVE (NEGATIVE); PHENCYCLIDINE, UR NEGATIVE (NEGATIVE)
--- NOTE | 2018-11-12 18:10 | CON ---
DATE: 11/12/2018 The patient is seen earlier today in room 560, bed 2. CHIEF COMPLAINT: Right foot infection times several days. HISTORY OF PRESENT ILLNESS: This is a 47-year-old male, who was admitted through the emergency room with a history of diabetes mellitus, history of anxiety, history of bronchitis, who has had admitted to the emergency room, was seen in the emergency room by Dr. Frandy Rachel. The patient has had an ulcer on his foot; however, it became red and swollen and hot although he stated no fevers and chills, no nausea, vomiting or chest pain. REVIEW OF SYSTEMS: A 12-point review of systems is performed. PAST MEDICAL HISTORY: Significant for, the patient has diabetes mellitus, hypertension, coronary artery disease and anxiety. PAST SURGICAL HISTORY: Significant for appendectomy in and tonsillectomy. ALLERGIC: THE PATIENT IS ALLERGIC TO BACTRIM AND SULFA, DEVELOPS A RASH. HE DENIES PENICILLIN ALLERGY, ALTHOUGH IT IS WRITTEN THAT HE IS ALLERGIC TO PENICILLIN. MEDICATIONS AT HOME: Include the patient to be on cephalexin and clindamycin. PHYSICAL EXAMINATION: GENERAL: On exam, the patient is in bed, in no acute distress. VITAL SIGNS: Temperature is 98, T-max is 100.6. Pulse of 92, it was up to 132 yesterday on admission. Respiratory rate of 18, it was up to 22. Blood pressure of 123/79. HEENT: Unremarkable. NECK: Supple. LUNGS: Have decreased breath sounds. HEART: Normal S1, S2. ABDOMEN: Soft, nontender. EXTREMITIES: Examination of right foot reveals significant edema and erythema, warm to touch with erythema extending throughout his foot. LABORATORY EXAMINATION: Reveals a white count of 14,600 and hemoglobin of 15, MCV is 78 with platelets of 257,000. Coagulation, INR of 1.2. Blood gases are reviewed. The patient has a lactic acid of 2.1. Chemistries reveal the patient's creatinine is 0.7 and blood glucose is 241. Troponin is negative. Microbiology is pending. The patient also had an x-ray of the foot, which is noted and questionable periosteal reaction and questionable osteomyelitis. His sed rate is reported to be at 42. ASSESSMENT AND PLAN: This is a 47-year-old male with obesity with a body mass index of 35, diabetes mellitus, hypertension, coronary artery disease, anxiety, presenting with a fever of 100.6, heart rate of 132, respiratory rate of 22, white count of 14,000, and a foot, erythematous, warm. 1. Sepsis with a right foot cellulitis, must rule out underlying osteomyelitis and peripheral vascular disease with the vascular and podiatric doctors involved. Currently, we will start the patient on vancomycin and meropenem. The patient is to get an MRI of his foot , wound culture, blood cultures, HIV because of his age of 47 and we will make further recommendations upon availability of initial tests and input from vascular and should have vascular studies. Dominic Blum MD
--- NOTE | 2018-11-12 20:58 | CP.PCM.PCO ---
<Malik Fu - Last Filed: 11/12/18 21:02> Addendum Addendum: 11/12/18 21:02 OVERNIGHT RESIDENT NOTE MALIK FU PGY1 Nursing staff paged reporting patient was claustrophobic during MRI. <Symone Lam - Last Filed: 11/13/18 19:04> Attending/Attestation - Attestation I have personally seen and examined this patient.: No I have fully participated in the care of the patient.: No I have reviewed all pertinent clinical information: No
[2018-11-12] MEDS ORDERED: Insulin Detemir 100 units/ml Vial (Levemir) SC SCH (22:00)
[2018-11-13] MEDS: Meropenem IV 1 gm in NS 1 GM/50 ML BAG IVPB SCH ×3 (05:21→23:43)
[2018-11-13 07:36] LABS: HEMOGLOBIN 14.5 g/dL (14.0-18.0); MEAN CELL VOLUME 79.5 fl (80.0-105.0); MEAN CORPUSCULAR HEMOGLOBIN 26.8 pg (25.0-35.0); MEAN CORPUSCULAR HGB CONC 33.6 g/dl (31.0-37.0); MEAN PLATELET VOLUME 10.3 fl (7.0-11.0); RBC 5.42 10^6/uL (3.5-6.1); RED CELL DISTRIBUTION WIDTH 13.9 % (11.5-14.5); WHITE BLOOD COUNT 10.6 10^3/uL (4.5-11.0)
[2018-11-13 08:04] LABS: ALBUMIN 3.9 g/dL (3.0-4.8); ALT/SGPT 18 U/L (7-56); AST/SGOT 20 U/L (17-59); BLOOD UREA NITROGEN 11 mg/dL (7-21); CALCIUM 8.8 mg/dL (8.4-10.5); GFR NON-AFRICAN AMERICAN > 60
[2018-11-13] MEDS: Vancomycin 1gm in NS 250ml 1 GM/250 ML BAG IVPB SCH ×2 (08:57→21:23)
[2018-11-13] MEDS: Insulin Lispro (humaLOG) MEDIUM Coverage SC SCH ×4 (09:10→21:58)
[2018-11-13] MEDS: Enoxaparin 40 mg Syringe SC SCH (09:11)
--- NOTE | 2018-11-13 11:12 | PN ---
DATE: 11/13/2018 SUBJECTIVE: The patient is in bed in no acute distress, nontoxic. PHYSICAL EXAMINATION: VITAL SIGNS: Temperature is 99, T-max yesterday was 100.3, heart rate of 93, respiratory rate of 18, it was up to 22. HEENT: Unremarkable. NECK: Supple. LUNGS: Have decreased breath sounds. HEART: Normal S1, S2. ABDOMEN: Soft. EXTREMITIES: Examination of foot, has improved less erythema, less edema. LABORATORY EXAMINATION: Reveals a white count it is down to 10,000 and hemoglobin of 14, MCV is low at 79. MCV with sed rate of 42. Chemistries reveals a BUN of 11, creatinine of 0.7. C-reactive protein is 73. Toxicology is noted. Microbiology reveals the foot culture is a Gram-negative negrita with heavy growth and the blood cultures are reported to be negative. Review of orders reveals the patient to be on vancomycin and meropenem. MRI of the foot is pending. ASSESSMENT AND PLAN: This is a 47-year-old male admitted with diagnosis; 1. Sepsis with a Gram-negative right foot cellulitis, must rule out underlying osteomyelitis and peripheral arterial disease. Vascular consultation and podiatric consultation MR results and we will continue the current antibiotics on vancomycin and meropenem pending final culture results and clinical response and we will follow with you. Dominic Blum MD
--- NOTE | 2018-11-13 11:27 | CP.PCM.PN ---
Subjective - Date & Time of Evaluation Date of Evaluation: 11/13/18 Time of Evaluation: 09:00 - Subjective Subjective: Mesha Dior, PGY-1 Medicine Progress Note: Pt was seen and examined at bedside this AM. Pt states that overnight they attempted to do foot MRI but pt became claustrophobic and was unable to perform the test. Upon discussion today the pt states that even with premedication the pt refuses to go to have MRI done. Pt at this time states that he has some pain in the R foot. Objective - Vital Signs/Intake and Output Vital Signs (last 24 hours): Temp Pulse Resp BP Pulse Ox 98.3 F 90 20 135/87 96 11/13/18 06:00 11/13/18 06:00 11/13/18 06:00 11/13/18 06:00 11/13/18 06:00 Intake and Output: 11/13/18 11/13/18 06:59 18:59 Intake Total 980 300 Output Total 200 Balance 780 300 - Medications Medications: Current Medications Acetaminophen (Tylenol 325mg Tab) 650 mg PO Q6H PRN PRN Reason: Fever >100.4 F Last Admin: 11/12/18 20:25 Dose: 650 mg Dextrose (Dextrose 50% Inj) 0 ml IV STAT PRN; Protocol PRN Reason: Hypoglycemia Protocol Enoxaparin Sodium (Lovenox) 40 mg SC DAILY KENY; Protocol Last Admin: 11/13/18 09:11 Dose: Not Given Sodium Chloride (Sodium Chloride 0.9%) 1,000 mls @ 150 mls/hr IV .Q6H40M KENY Last Admin: 11/12/18 17:15 Dose: 150 mls/hr Meropenem (Merrem Iv 1 Gm Premix) 1 gm in 50 mls @ 100 mls/hr IVPB Q8 KENY; Protocol Stop: 11/21/18 14:01 Last Admin: 11/13/18 05:21 Dose: 100 mls/hr Vancomycin HCl (Vancomycin 1gm) 1 gm in 250 mls @ 167 mls/hr IVPB Q12H KENY; Protocol Stop: 11/21/18 08:31 Last Admin: 11/13/18 08:57 Dose: 167 mls/hr Dextrose (Dextrose 5% In Water 1000 Ml) 1,000 mls @ 0 mls/hr IV .Q0M PRN; Protocol PRN Reason: Hypoglycemia Protocol Ibuprofen (Motrin Tab) 400 mg PO Q6H PRN PRN Reason: Pain, moderate (4-7) Insulin Detemir (Levemir) 15 unit SC HS KENY Insulin Human Lispro (Humalog Med) 0 units SC ACHS KENY; Protocol Last Admin: 11/13/18 09:10 Dose: 1 units - Labs Labs: 11/13/18 07:00 11/13/18 07:00 PT 13.5 SECONDS (9.4-12.5) H 11/11/18 20:12 INR 1.22 11/11/18 20:12 APTT 33.6 Seconds (26.9-38.3) 11/11/18 20:12 - Constitutional Appears: In Acute Distress - Head Exam Head Exam: ATRAUMATIC, NORMAL INSPECTION, NORMOCEPHALIC - Eye Exam Eye Exam: EOMI, Normal appearance Pupil Exam: NORMAL ACCOMODATION - ENT Exam ENT Exam: Mucous Membranes Dry - Respiratory Exam Respiratory Exam: absent: Chest Wall Tenderness, Clear to Auscultation Bilateral, Rales, Rhonchi, Wheezes - Cardiovascular Exam Cardiovascular Exam: RRR, +S1, +S2 - GI/Abdominal Exam GI & Abdominal Exam: Normal Bowel Sounds, Soft. absent: Distended, Firm, Guarding, Rebound, Rigid, Tenderness - Extremities Exam Extremities exam: Positive for: normal capillary refill, pedal pulses present. Negative for: calf tenderness Additional comments: Right Toe is significantly inflamed, warm to touch, with ulceration at the base of the toe. - Neurological Exam Neurological exam: Alert, CN II-XII Intact, Oriented x3, Reflexes Normal - Psychiatric Exam Psychiatric exam: Normal Affect, Normal Mood - Skin Skin Exam: Dry, Intact, Normal Color, Warm Assessment & Plan - Assessment and Plan (Free Text) Assessment: Patient is a 47 year old male, whose past medical history includes Uncontrolled DM (Last Hgb A1c 10.6 05/31; not on meds) and Anxiety who presents to the emergency department complaining of an ulcer to the bottom of his right great t oe. Plan: Sepsis 2/2 Right Toe Ulcer - Pt is no longer febrile or tachycardic, Sepsis is resolved - XR r-foot: suggestive of osteo - MRI right foot ordered to confirm osteo - Pt is refusing to have it done due to claustrophobia - ID consulted, recs appreciated - Vanc and merrem continued - Wound Cx - Gram (-) negrita and gram (-) Cocci - Bcx - Negative x 24 hours - Procal level (-) - +MRSA, contact precautions - ID consulted - Podiatry consulted Uncontrolled DM - ISS - Accuchecks - Diabetic diet - Levemir 15 units qhs - Hgb A1c - 10.0 - Diabetic education ppx: - Lovenox Diet: HHD/CCD Dispo: Podiatry will attempt to have pt agree to MRI tomorrow. Case was discussed and reviewed with Attending Physician, Dr. Rufina Dior, PGY1
--- NOTE | 2018-11-13 12:30 | CP.PCM.CON ---
History of Present Illness - History of Present Illness History of Present Illness: Podiatry consult note - Dr. Cartagena 47M seen and evaluated this AM for right hallux ulceration. Resting comfortably. States that the ulcer began a few weeks ago after he had noticed some tough skin developing and bleeding and he scraped it off himself and he found a deep hole underneath. States that he noticed pus drainaging from the site and that his toe began to become swollen and red. States that he does not have pain to the site. Denies n/v/f/c/sob and has no other acute pedal complaints. PMHx: Uncontrolled DM (Last Hgb A1c 10.6 05/31; not on meds) and Anxiety PSHx: appendectomy All: PCN, sulfa Past Patient History - Infectious Disease Hx of Infectious Diseases: None - Tetanus Immunizations Tetanus Immunization: Unknown - Past Social History Smoking Status: Never Smoked - CARDIAC Hx Cardiac Disorders: Yes Hx Hypertension: Yes - PULMONARY Hx Respiratory Disorders: Yes Hx Bronchitis: Yes - ENDOCRINE/METABOLIC Hx Endocrine Disorders: Yes Hx Diabetes Mellitus Type 2: Yes ("borderline") - INTEGUMENTARY Other/Comment: staph A of skin - MUSCULOSKELETAL/RHEUMATOLOGICAL Hx Falls: No - PSYCHIATRIC Hx Psychophysiologic Disorder: Yes Hx Anxiety: Yes Hx Depression: No Hx Substance Use: No - SURGICAL HISTORY Hx Appendectomy: Yes (1969) Hx Tonsillectomy: Yes - ANESTHESIA Hx Anesthesia: Yes Hx Anesthesia Reactions: No Hx Malignant Hyperthermia: No Meds Allergies/Adverse Reactions: Allergies Allergy/AdvReac Type Severity Reaction Status Date / Time Penicillins Allergy ANAPHYLAXIS Verified 11/11/18 19:20 Sulfa (Sulfonamide Allergy SWELLING Verified 11/11/18 19:20 Antibiotics) - Medications Medications: Current Medications Acetaminophen (Tylenol 325mg Tab) 650 mg PO Q6H PRN PRN Reason: Fever >100.4 F Last Admin: 11/12/18 20:25 Dose: 650 mg Dextrose (Dextrose 50% Inj) 0 ml IV STAT PRN; Protocol PRN Reason: Hypoglycemia Protocol Enoxaparin Sodium (Lovenox) 40 mg SC DAILY [facility]; Protocol Last Admin: 11/13/18 09:11 Dose: Not Given Sodium Chloride (Sodium Chloride 0.9%) 1,000 mls @ 150 mls/hr IV .Q6H40M [facility] Last Admin: 11/12/18 17:15 Dose: 150 mls/hr Meropenem (Merrem Iv 1 Gm Premix) 1 gm in 50 mls @ 100 mls/hr IVPB Q8 [facility]; Protocol Stop: 11/21/18 14:01 Last Admin: 11/13/18 05:21 Dose: 100 mls/hr Vancomycin HCl (Vancomycin 1gm) 1 gm in 250 mls @ 167 mls/hr IVPB Q12H [facility]; Protocol Stop: 11/21/18 08:31 Last Admin: 11/13/18 08:57 Dose: 167 mls/hr Dextrose (Dextrose 5% In Water 1000 Ml) 1,000 mls @ 0 mls/hr IV .Q0M PRN; Protocol PRN Reason: Hypoglycemia Protocol Ibuprofen (Motrin Tab) 400 mg PO Q6H PRN PRN Reason: Pain, moderate (4-7) Insulin Detemir (Levemir) 15 unit SC HS [facility] Insulin Human Lispro (Humalog Med) 0 units SC ACHS [facility]; Protocol Last Admin: 11/13/18 12:02 Dose: 3 units Physical Exam - Constitutional Appears: Non-toxic - Head Exam Head Exam: ATRAUMATIC - Extremities Exam Additional comments: VASC: normal exam, pulses palpable, cap refill <3 seconds, edema at the right hallux 2/2 wound DERM: ulcertion at the plantar medial aspect of right hallux, increased depth, no probe to bone, minimal pus noted, erythema globally to the digit, hyp erkeratotic rim, no malodor appreciated ORTHO: no pain on palpation to wound/digit, no other gross pathology noted NEURO: mildly diminished sensation - Neurological Exam Neurological exam: Alert, Oriented x3 - Psychiatric Exam Psychiatric exam: Normal Affect Results - Vital Signs Recent Vital Signs: Last Vital Signs Temp 98.3 F 11/13/18 06:00 Pulse 90 11/13/18 06:00 Resp 20 11/13/18 06:00 BP 135/87 11/13/18 06:00 Pulse Ox 96 11/13/18 06:00 - Labs Result Diagrams: 11/13/18 07:00 11/13/18 07:00 Labs: Laboratory Results - last 24 hr 11/12/18 11/12/18 11/12/18 00:00 00:00 07:00 WBC RBC Hgb Hct MCV MCH MCHC RDW Plt Count MPV Sodium Potassium Chloride Carbon Dioxide Anion Gap BUN Creatinine Est GFR ( Amer) Est GFR (Non-Af Amer) POC Glucose (mg/dL) Random Glucose Hemoglobin A1c 10.0 H Calcium Total Bilirubin AST ALT Alkaline Phosphatase C-Reactive Protein 73.20 H Total Protein Albumin Globulin Albumin/Globulin Ratio Procalcitonin 0.24 Urine Opiates Screen Urine Methadone Screen Ur Barbiturates Screen Ur Phencyclidine Scrn Ur Amphetamines Screen U Benzodiazepines Scrn U Oth Cocaine Metabols U Cannabinoids Screen 11/12/18 11/12/18 11/12/18 15:00 16:01 20:51 WBC RBC Hgb Hct MCV MCH MCHC RDW Plt Count MPV Sodium Potassium Chloride Carbon Dioxide Anion Gap BUN Creatinine Est GFR ( Amer) Est GFR (Non-Af Amer) POC Glucose (mg/dL) 289 H 260 H Random Glucose Hemoglobin A1c Calcium Total Bilirubin AST ALT Alkaline Phosphatase C-Reactive Protein Total Protein Albumin Globulin Albumin/Globulin Ratio Procalcitonin Urine Opiates Screen Negative Urine Methadone Screen Negative Ur Barbiturates Screen Negative Ur Phencyclidine Scrn Negative Ur Amphetamines Screen Negative U Benzodiazepines Scrn Negative U Oth Cocaine Metabols Negative U Cannabinoids Screen Negative 11/13/18 11/13/18 11/13/18 06:20 07:00 07:00 WBC 10.6 D RBC 5.42 Hgb 14.5 Hct 43.1 MCV 79.5 L MCH 26.8 MCHC 33.6 RDW 13.9 Plt Count 235 MPV 10.3 Sodium 138 Potassium 3.9 Chloride 103 Carbon Dioxide 24 Anion Gap 15 BUN 11 Creatinine 0.7 L Est GFR ( Amer) > 60 Est GFR (Non-Af Amer) > 60 POC Glucose (mg/dL) 189 H Random Glucose 194 H Hemoglobin A1c Calcium 8.8 Total Bilirubin 0.7 AST 20 ALT 18 Alkaline Phosphatase 70 C-Reactive Protein Total Protein 7.6 Albumin 3.9 Globulin 3.7 Albumin/Globulin Ratio 1.0 L Procalcitonin Urine Opiates Screen Urine Methadone Screen Ur Barbiturates Screen Ur Phencyclidine Scrn Ur Amphetamines Screen U Benzodiazepines Scrn U Oth Cocaine Metabols U Cannabinoids Screen 11/13/18 11:43 WBC RBC Hgb Hct MCV MCH MCHC RDW Plt Count MPV Sodium Potassium Chloride Carbon Dioxide Anion Gap BUN Creatinine Est GFR ( Amer) Est GFR (Non-Af Amer) POC Glucose (mg/dL) 220 H Random Glucose Hemoglobin A1c Calcium Total Bilirubin AST ALT Alkaline Phosphatase C-Reactive Protein Total Protein Albumin Globulin Albumin/Globulin Ratio Procalcitonin Urine Opiates Screen Urine Methadone Screen Ur Barbiturates Screen Ur Phencyclidine Scrn Ur Amphetamines Screen U Benzodiazepines Scrn U Oth Cocaine Metabols U Cannabinoids Screen Assessment & Plan - Assessment and Plan (Free Text) Assessment: 47M with right hallux ulceration Plan: Patient seen and evaluated Discussed with Dr. Cartagena WBC 10.6 Dressed with betadine and foam dressing Wound culture taken X-ray reveals possible OM with intraarticular fracture of distal phalanx of right hallux Continue IV abx Ambulate in surgical shoe to right heel, offload right hallux Thank you for the consult Will continue to follow while in house - Date & Time Date: 11/13/18 Time: 19:00
[2018-11-13] MEDS: Sodium Chloride 0.9% 1,000 ML IV SCH (15:15)
[2018-11-13] MEDS: Insulin Detemir 100 units/ml Vial (Levemir) SC SCH (21:23)
[2018-11-14 07:00] LABS: MEAN CELL VOLUME 79.6 fl (80.0-105.0); MEAN CORPUSCULAR HEMOGLOBIN 26.5 pg (25.0-35.0); MEAN CORPUSCULAR HGB CONC 33.3 g/dl (31.0-37.0); MEAN PLATELET VOLUME 9.8 fl (7.0-11.0); RBC 5.65 10^6/uL (3.5-6.1); RED CELL DISTRIBUTION WIDTH 13.9 % (11.5-14.5); WHITE BLOOD COUNT 7.6 10^3/uL (4.5-11.0)
[2018-11-14 07:28] LABS: ALBUMIN 3.9 g/dL (3.0-4.8); ALT/SGPT 16 U/L (7-56); AST/SGOT 21 U/L (17-59); BLOOD UREA NITROGEN 12 mg/dL (7-21); GFR NON-AFRICAN AMERICAN > 60
[2018-11-14] MEDS: Vancomycin 1gm in NS 250ml 1 GM/250 ML BAG IVPB SCH ×2 (08:06→20:34)
[2018-11-14] MEDS: Insulin Lispro (humaLOG) MEDIUM Coverage SC SCH ×3 (08:06→17:00)
--- NOTE | 2018-11-14 09:05 | CP.PCM.PN ---
Subjective - Date & Time of Evaluation Date of Evaluation: 11/14/18 Time of Evaluation: 09:03 - Subjective Subjective: Podiatry progress note - Dr. Cartagena 47M seen and evaluated this AM for right hallux ulceration. Resting comfortably. States that the ulcer began a few weeks ago after he had noticed some tough skin developing and bleeding and he scraped it off himself and he found a deep hole underneath. Denies acute overnight events. Denies n/v/f/c/sob and has no other acute pedal complaints. states he took his dressing to the foot off because the wound heels better air exposure Objective - Vital Signs/Intake and Output Vital Signs (last 24 hours): Temp Pulse Resp BP Pulse Ox 98.3 F 66 20 108/64 99 11/14/18 06:00 11/14/18 06:00 11/14/18 06:00 11/14/18 06:00 11/14/18 06:00 Intake and Output: 11/14/18 11/14/18 06:59 18:59 Intake Total 660 Output Total 300 Balance 360 - Medications Medications: Current Medications Acetaminophen (Tylenol 325mg Tab) 650 mg PO Q6H PRN PRN Reason: Fever >100.4 F Last Admin: 11/12/18 20:25 Dose: 650 mg Dextrose (Dextrose 50% Inj) 0 ml IV STAT PRN; Protocol PRN Reason: Hypoglycemia Protocol Enoxaparin Sodium (Lovenox) 40 mg SC DAILY [facility]; Protocol Last Admin: 11/13/18 09:11 Dose: Not Given Meropenem (Merrem Iv 1 Gm Premix) 1 gm in 50 mls @ 100 mls/hr IVPB Q8 [facility]; Protocol Stop: 11/21/18 14:01 Last Admin: 11/13/18 23:43 Dose: 100 mls/hr Vancomycin HCl (Vancomycin 1gm) 1 gm in 250 mls @ 167 mls/hr IVPB Q12H [facility]; P rotocol Stop: 11/21/18 08:31 Last Admin: 11/14/18 08:06 Dose: 167 mls/hr Dextrose (Dextrose 5% In Water 1000 Ml) 1,000 mls @ 0 mls/hr IV .Q0M PRN; Protocol PRN Reason: Hypoglycemia Protocol Ibuprofen (Motrin Tab) 400 mg PO Q6H PRN PRN Reason: Pain, moderate (4-7) Insulin Detemir (Levemir) 15 unit SC [facility] Last Admin: 11/13/18 21:23 Dose: 15 units Insulin Human Lispro (Humalog Med) 0 units SC [facility]; Protocol Last Admin: 11/14/18 08:06 Dose: 1 units - Labs Labs: 11/14/18 06:40 11/14/18 06:40 PT 13.5 SECONDS (9.4-12.5) H 11/11/18 20:12 INR 1.22 11/11/18 20:12 APTT 33.6 Seconds (26.9-38.3) 11/11/18 20:12 - Constitutional Appears: Well, Non-toxic, No Acute Distress - Head Exam Head Exam: ATRAUMATIC, NORMOCEPHALIC - Eye Exam Eye Exam: Normal appearance - ENT Exam ENT Exam: Mucous Membranes Moist - Respiratory Exam Respiratory Exam: Clear to Ausculation Bilateral - Cardiovascular Exam Cardiovascular Exam: REGULAR RHYTHM, +S1, +S2 - Extremities Exam Additional comments: VASC: normal exam, pulses palpable, cap refill <3 seconds, edema at the right hallux 2/2 wound DERM: ulcertion at the plantar medial aspect of right hallux, increased depth, no probe to bone, minimal pus noted, erythema globally to the digit, hyperkeratotic rim, no malodor appreciated ORTHO: no pain on palpation to wound/digit, no other gross pathology noted NEURO: mildly diminished sensation Assessment and Plan - Assessment and Plan (Free Text) Assessment: 47M with right hallux ulceration Plan: Patient seen and evaluated Discussed with Dr. Cartagena WBC 10.6 Wound culture- gram negative negrita and gram positive cocci X-ray reveals possible OM with intraarticular fracture of distal phalanx of right hallux Continue IV abx Ambulate in surgical shoe to right heel, offload right hallux Patient refuses any treatment from podiatry at this time; will continue to follow
--- NOTE | 2018-11-14 12:16 | US ---
HISTORY: Leg pain and swelling. Evaluate for DVT PHYSICIAN(S): Serg Terrazas MD. TECHNIQUE: Duplex sonography and color-flow Doppler with graded compression were used to evaluate the deep venous systems of both lower extremities. The exam is limited by body habitus and edema FINDINGS: The visualized deep venous systems of both lower extremities are sonographically normal and compressible. Normal wave forms and augmentation are seen. There is no sonographic evidence for deep venous thrombosis in the visualized segments of both lower extremities. IMPRESSION: No sonographic evidence for deep venous thrombosis in the visualized segments of both lower extremities. Limited exam
[2018-11-14] MEDS: Enoxaparin 40 mg Syringe SC SCH (12:56)
--- NOTE | 2018-11-14 13:17 | PN ---
DATE: 11/14/2018 LOCATION: The patient is seen earlier today in 560, bed 2. SUBJECTIVE: The patient is awake and alert, doing well here. He states he is much improved. PHYSICAL EXAMINATION VITAL SIGNS: Temperature is 98, blood pressure is 108/60, respiratory rate of 18. HEENT: Unremarkable. NECK: Supple. LUNGS: Have decreased breath sounds. HEART: Normal S1, S2. ABDOMEN: Soft. EXTREMITIES: Examination of the foot is much improved. LABORATORY EXAMINATION: Reveals a white count of 7.6, hemoglobin of 15, sed rate is 42. Chemistry reveals the patient's creatinine is 0.7, C-reactive protein is 73.2. Toxicology is noted. Microbiology with MRSA and Proteus mirabilis. The Proteus mirabilis is pansensitive. The MRSA is vancomycin sensitive, clindamycin resistant, erythromycin resistant, and Levaquin resistant. ALLERGIES: THE PATIENT IS ALLERGIC TO SULFA AND PENICILLIN ACCORDING TO THE CHART. Upon review the blood cultures are negative. The patient had a plain x-ray, which is reviewed. ASSESSMENT AND PLAN: A 47-year-old male with; 1. Sepsis with Proteus and methicillin-resistant Staphylococcus aureus right foot cellulitis, must rule out underlying osteomyelitis and peripheral arterial disease, on vancomycin and meropenem since THE PATIENT HAS SULFA AND PENICILLIN ALLERGIES. Duration of therapy awaiting for MRI results. We will continue the vancomycin and meropenem. Review of the medications reveals vancomycin and meropenem to be active. We will order a vancomycin trough level. The patient gets the vancomycin at 8:30 in the morning and 8:30 at night. We will order a vancomycin trough level for tomorrow at 7:30 in the morning, an hour before tomorrow's space. We will follow with you. Dominic Blum MD
[2018-11-14] MEDS: Meropenem IV 1 gm in NS 1 GM/50 ML BAG IVPB SCH ×2 (13:56→22:28)
--- NOTE | 2018-11-14 16:33 | CP.PCM.PN ---
<Ronan Wren - Last Filed: 11/14/18 16:57> Subjective - Date & Time of Evaluation Date of Evaluation: 11/14/18 Time of Evaluation: 06:20 - Subjective Subjective: Ronan Burns DO, PGY1 Hospitalist progress note for Dr. Cartagena Patient seen and examined at the bedside. He denied fever, chills. Ambulating in the room tolerating his diet. No active events overnight Objective - Vital Signs/Intake and Output Vital Signs (last 24 hours): Temp Pulse Resp BP Pulse Ox 98.5 F 83 20 118/81 97 11/14/18 14:00 11/14/18 14:00 11/14/18 14:00 11/14/18 15:01 11/14/18 14:00 Intake and Output: 11/14/18 11/14/18 06:59 18:59 Intake Total 660 480 Output Total 300 650 Balance 360 -170 - Medications Medications: Current Medications Acetaminophen (Tylenol 325mg Tab) 650 mg PO Q6H PRN PRN Reason: Fever >100.4 F Last Admin: 11/12/18 20:25 Dose: 650 mg Dextrose (Dextrose 50% Inj) 0 ml IV STAT PRN; Protocol PRN Reason: Hypoglycemia Protocol Enoxaparin Sodium (Lovenox) 40 mg SC DAILY [facility]; Protocol Last Admin: 11/14/18 12:56 Dose: Not Given Meropenem (Merrem Iv 1 Gm Premix) 1 gm in 50 mls @ 100 mls/hr IVPB Q8 [facility]; Protocol Stop: 11/21/18 14:01 Last Admin: 11/14/18 13:56 Dose: 100 mls/hr Vancomycin HCl (Vancomycin 1gm) 1 gm in 250 mls @ 167 mls/hr IVPB Q12H [facility]; Protocol Stop: 11/21/18 08:31 Last Admin: 11/14/18 08:06 Dose: 167 mls/hr Dextrose (Dextrose 5% In Water 1000 Ml) 1,000 mls @ 0 mls/hr IV .Q0M PRN; Protocol PRN Reason: Hypoglycemia Protocol Ibuprofen (Motrin Tab) 400 mg PO Q6H PRN PRN Reason: Pain, moderate (4-7) Insulin Detemir (Levemir) 15 unit SC HS [facility] Last Admin: 11/13/18 21:23 Dose: 15 units Insulin Human Lispro (Humalog Med) 0 units SC [facility]; Protocol Last Admin: 11/14/18 11:40 Dose: Not Given - Labs Labs: 11/14/18 06:40 11/14/18 06:40 PT 13.5 SECONDS (9.4-12.5) H 11/11/18 20:12 INR 1.22 11/11/18 20:12 APTT 33.6 Seconds (26.9-38.3) 11/11/18 20:12 - Constitutional Appears: Well, Non-toxic, No Acute Distress - Head Exam Head Exam: ATRAUMATIC, NORMAL INSPECTION, NORMOCEPHALIC - Eye Exam Eye Exam: EOMI, Normal appearance, PERRL Pupil Exam: NORMAL ACCOMODATION, PERRL - ENT Exam ENT Exam: Mucous Membranes Moist, Normal Exam - Neck Exam Neck Exam: Full ROM, Normal Inspection. absent: Lymphadenopathy - Cardiovascular Exam Cardiovascular Exam: REGULAR RHYTHM, +S1, +S2. absent: Murmur - GI/Abdominal Exam GI & Abdominal Exam: Soft, Normal Bowel Sounds. absent: Tenderness Assessment and Plan - Assessment and Plan (Free Text) Assessment: 47-year-old male with a past medical history of uncontrolled DM, anxiety. Admitted for sepsis due to right toe ulcer Plan: Right hallux ulceration: Patient afebrile, no leukocytosis XR right foot: Suggestive of osteomyelitis Continue IV antibiotic meropenem/vancomycin for another 9 days as per ID Wound culture positive for GNR, gram-positive cocci Blood culture negative to date Patient refused MRI due to claustrophobia Continue ibuprofen for pain control Continue wound care Podiatry following ID following Uncontrolled DM: A1c 10 ISSlow Accuchecks continue Levemir 15u HS PPX: Lovenox SCD Case discussed and plan reviewed with my attending Dr. Osiel Wren, D0 <Maricruz Cartagena R - Last Filed: 11/15/18 07:35> Objective - Vital Signs/Intake and Output Vital Signs (last 24 hours): Temp Pulse Resp BP Pulse Ox 98.1 F 87 18 136/86 98 11/14/18 23:04 11/14/18 23:04 11/14/18 23:04 11/14/18 23:04 11/14/18 23:04 Intake and Output: 11/15/18 11/15/18 06:59 18:59 Intake Total 720 Balance 720 - Medications Medications: Current Medications Acetaminophen (Tylenol 325mg Tab) 650 mg PO Q6H PRN PRN Reason: Fever >100.4 F Last Admin: 11/12/18 20:25 Dose: 650 mg Dextrose (Dextrose 50% Inj) 0 ml IV STAT PRN; Protocol PRN Reason: Hypoglycemia Protocol Enoxaparin Sodium (Lovenox) 40 mg SC DAILY [facility]; Protocol Last Admin: 11/14/18 12:56 Dose: Not Given Meropenem (Merrem Iv 1 Gm Premix) 1 gm in 50 mls @ 100 mls/hr IVPB Q8 [facility]; Pro tocol Stop: 11/21/18 14:01 Last Admin: 11/15/18 05:26 Dose: 100 mls/hr Vancomycin HCl (Vancomycin 1gm) 1 gm in 250 mls @ 167 mls/hr IVPB Q12H [facility]; Protocol Stop: 11/21/18 08:31 Last Admin: 11/14/18 20:34 Dose: 167 mls/hr Dextrose (Dextrose 5% In Water 1000 Ml) 1,000 mls @ 0 mls/hr IV .Q0M PRN; Protocol PRN Reason: Hypoglycemia Protocol Ibuprofen (Motrin Tab) 400 mg PO Q6H PRN PRN Reason: Pain, moderate (4-7) Insulin Detemir (Levemir) 15 unit SC HS [facility] Last Admin: 11/14/18 22:29 Dose: 15 units Insulin Human Lispro (Humalog Med) 0 units SC [facility]; Protocol Last Admin: 11/14/18 17:00 Dose: 1 units - Labs Labs: 11/14/18 06:40 11/14/18 06:40 PT 13.5 SECONDS (9.4-12.5) H 11/11/18 20:12 INR 1.22 11/11/18 20:12 APTT 33.6 Seconds (26.9-38.3) 11/11/18 20:12 Attending/Attestation - Attestation I have personally seen and examined this patient.: Yes I have fully participated in the care of the patient.: Yes I have reviewed all pertinent clinical information, including history, physical exam and plan: Yes Notes (Text): Patient seen and examined by me with resident at approximately 1PM on 11/14/18. Case including HPI, physical exam, and assessment and plan discussed with resident. Agree with above with following additions/corrections. Patient is a 47-year-old male with past medical history significant for type 2 diabetes (noncompliant with medications, does not take medications at home), and anxiety that presented to the emergency room with an ulcer on the bottom of his right great toe. Patient states that he is feeling much better today. He states that he has been ambulating without pain in his right great toe. He feels that the swelling in his right foot has also improved. He states that he is not taking any medications at home for diabetes but understands that he needs to be on medi cations. Patient denies any chest pain or shortness of breath. No fevers or chills. No nausea, vomiting, or abdominal pain. No headaches or dizziness. No dysuria. Patient denies any diarrhea constipation. Physical exam: General: Awake and alert lying in bed in no acute distress HEENT: Normocephalic, atraumatic. Extraocular muscles intact. Pupils equal and reactive, no scleral icterus. Oropharynx is pink and moist. No pharyngeal erythema or exudate appreciated. Neck is supple. Cardiovascular: Normal rhythm. Normal S1 and S2. No murmurs, rubs, or gallops appreciated Pulmonary: Normal respiratory effort. No rhonchi, rales, or wheezing appreciated. Gastrointestinal: Soft. Nondistended. Nontender. Positive bowel sounds all 4 quadrants. No guarding. Musculoskeletal: Moves all extremities. No calf tenderness. Positive right foot edema. Right great toe with erythema and warmth; dressing clean, dry, and intact Central nervous system: AAO x 3. No focal deficits. Dermatologic: Skin warm and dry. Assessment and plan: Patient is a 47-year-old male with past medical history significant for type 2 diabetes (noncompliant with medications, does not take medications at home), and anxiety that presented to the emergency room with an ulcer on the bottom of his right great toe. 1. Sepsis secondary to right foot cellulitis, right great toe ulcer. Right foot xray per radiologist showed probable intra-articular fracture of the medial base of the 1st distal phalanx, questionable periosteal reaction, infection/osteomyelitis could also have this appearance. Patient refusing MRI secondary to claustrophobia. Initial wound culture positive for Proteus mirabilis and MRSA. Repeat right foot wound culture pending. ID recommendations appreciated. Continue Merrem and Vancomycin. Leukocytosis resolved. Patient afebrile. Podiatry recommendations appreciated. 2. Uncontrolled DM2. Patient has not been taking any medications at home. Hgb A1C was 10. Continue insulin sliding scale. Continue levemir at bedtime. Continue to monitor accuchecks. nurses educator consulted. Compliance with diabetic medications discussed at length with patient. 3. DVT prophylaxis. Lovenox Case was discussed in detail with the patient regarding diagnosis, study results, and treatment plan. All questions answered.
[2018-11-14] MEDS: Insulin Detemir 100 units/ml Vial (Levemir) SC SCH (22:29)
[2018-11-14 23:05] VITALS: O2SAT 98
--- NOTE | 2018-11-14 23:26 | CON ---
DATE OF CONSULTATION: 11/14/2018 TIME OF CONSULTATION: 1300 hours. LOCATION OF CONSULTATION: Room 560, bed 2. REASON FOR CONSULTATION: The patient was admitted over the weekend with sepsis and diabetic ulcer of the right foot and toe with questionable osteomyelitis of the same. CHIEF COMPLAINT: The patient presents to the ED 2 days prior with hot, red, swollen right foot and focusing on the right first toe. HISTORY OF PRESENT ILLNESS: This is a 47-year-old male who was admitted through the emergency room reporting a history of having had a callus on his right first toe medial side that he self-treated by reducing the callus, and over the next couple of days, the area got "squishy" after coming out of the shower and gradually produced a discharge, and he continued to work with us on ulcer until the most recent cellulitis developed, at which time he came admitting to the emergency room on Wednesday. PAST MEDICAL HISTORY: His past medical history is positive for diabetes mellitus with neuropathy, CAD, hypertension, anxiety, some indications of recent bronchitis. REVIEW OF SYSTEMS: Noncontributory. He does admit to claustrophobia and a fear of having any surgical work done on his right foot, anticipating a lead from more work and more work and further loss and further loss of digits and foot. PAST SURGICAL HISTORY: His past surgical history is suggestive of previous tonsillectomy and previous appendectomy. MEDICATIONS: His medications are per the face sheet. ALLERGIES: HE ADMITS CLEAR ALLERGY TO BOTH BACTRIM AND SULFA DRUGS THAT INCLUDES SKIN RASHES AND A PREVIOUS PENICILLIN ALLERGY, ALTHOUGH THE PATIENT UNDER QUESTIONING SUGGESTS THAT HE IS NOT ALLERGIC TO PENICILLIN, JUST TO SULFA. Under clear forward questioning, we questioned any experience with contrast dye or IV dyes, and he denies any experience with the same or allergies. PHYSICAL EXAMINATION: EXTREMITIES: Reveals a warm foot with weakly palpable pulses. On the right side, there is swelling at the ankle and forefoot, and there is edema of the forefoot although the patient reports that having gone down in the last 2 days with antibiotic use. There was significant right edema and significant swelling centered in the first great toe of the right foot with a medial base plantar ulceration over the medial plantar aspect of the IPJ of the same. This probes deep. Previous cultures had been obtained and are pending. There is no evidence of streaking lymphangitis at the level of the foot and ankle. LABORATORY DATA: Suggests a significantly elevated sed rate and still a white count of normal. The x-ray evaluation indicates some possible subluxation, questionable fracture, and some possible periosteal elevation in the medial aspect of the distal phalanx and its proximal joint border. There are no cystic changes in the bone yet. ASSESSMENT AND PLAN: This is a 47-year-old male with cellulitis and diabetic ulceration secondary to neuropathy and self treatment with a highly suggestive x-ray indicating osteomyelitis. The patient is on IV antibiotic with cultures pending. He refuses to have an MRI performed, but we discussed the MRI alternatives, and he agrees to having a three-phase bone scan performed instead, not as definitive and not as selective. He understands the ramifications. We discussed the possible need for bone biopsy to include ulcer excision and debridement of the infected bone. The patient at this point tends to refuse. His preference is to take prolonged IV antibiotic and not to have foot surgery performed. I explained to him the potential risks in this decision, but we put him off any further explanations until we obtain the results of the bone scan. Bone scan is ordered. The patient is also ambulating in regularity and needed shower sandals, and we will order a surgical shoe and tell him to offload the left first toe when he walks in the surgical shoe where the dressings were changed with local wound care once a day by the podiatry resident and we will await the results hopefully tomorrow of the three-phase bone scan that was ordered today. Serg Cartagena DPM
[2018-11-15] MEDS: Meropenem IV 1 gm in NS 1 GM/50 ML BAG IVPB SCH ×2 (05:26→07:42)
[2018-11-15 07:45] LABS: HEMOGLOBIN 15.4 g/dL (14.0-18.0); MEAN CELL VOLUME 78.9 fl (80.0-105.0); MEAN CORPUSCULAR HGB CONC 34.2 g/dl (31.0-37.0); MEAN PLATELET VOLUME 9.8 fl (7.0-11.0); RBC 5.7 10^6/uL (3.5-6.1); RED CELL DISTRIBUTION WIDTH 13.6 % (11.5-14.5); WHITE BLOOD COUNT 8.5 10^3/uL (4.5-11.0)
[2018-11-15 07:46] VITALS: BP 108/71; PULSE 75; RESP 16; TEMP 98.2
[2018-11-15] MEDS: Insulin Lispro (humaLOG) MEDIUM Coverage SC SCH ×2 (08:02→11:49)
[2018-11-15] MEDS: Vancomycin 1gm in NS 250ml 1 GM/250 ML BAG IVPB SCH (08:03)
[2018-11-15 08:08] LABS: ALT/SGPT 31 U/L (7-56); AST/SGOT 23 U/L (17-59); BLOOD UREA NITROGEN 14 mg/dL (7-21); CALCIUM 9.1 mg/dL (8.4-10.5); GFR NON-AFRICAN AMERICAN > 60
[2018-11-15] MEDS: Enoxaparin 40 mg Syringe SC SCH (11:50)
--- NOTE | 2018-11-15 14:10 | CP.PCM.DIS ---
Provider - Provider Date of Admission: 11/11/18 20:54 Attending physician: Maricruz Cartagena DO Consults: 11/12/18 02:01 Physician Consult Routine Comment: Consulting Provider: Gary Ferrer Consulting Physician: Gary Ferrer Reason for Consult: Sepsis; R-toe cellulitis/osteo 11/12/18 02:58 Diabetic Education Referral Routine Comment: Physician Instructions: Reason For Exam: uncontrolled DM; not on meds 11/12/18 09:18 Physician Consult Routine Comment: Consulting Provider: Serg Cartagena Consulting Physician: Serg Cartagena Reason for Consult: Wound on R great toe Time Spent in preparation of Discharge (in minutes): 45 Hospital Course - Lab Results Lab Results: Micro Results 11/13/18 14:00 Foot - Right Gram Stain - Final 11/13/18 14:00 Foot - Right Wound Culture - Final Proteus Mirabilis Methicillin Resistant S Aureus 11/11/18 20:45 Blood Blood Culture - Preliminary NO GROWTH AFTER 3 DAYS 11/11/18 20:12 Blood Blood Culture - Preliminary NO GROWTH AFTER 3 DAYS 11/11/18 20:12 Foot - Right Gram Stain - Final 11/11/18 20:12 Foot - Right Wound Culture - Final Proteus Mirabilis Methicillin Resistant S Aureus Most Recent Lab Values WBC 8.5 10^3/uL (4.5-11.0) 11/15/18 07:30 RBC 5.70 10^6/uL (3.5-6.1) 11/15/18 07:30 Hgb 15.4 g/dL (14.0-18.0) 11/15/18 07:30 Hct 45.0 % (42.0-52.0) 11/15/18 07:30 MCV 78.9 fl (80.0-105.0) L 11/15/18 07:30 MCH 27.0 pg (25.0-35.0) 11/15/18 07:30 MCHC 34.2 g/dl (31.0-37.0) 11/15/18 07:30 RDW 13.6 % (11.5-14.5) 11/15/18 07:30 Plt Count 233 10^3/uL (120.0-450.0) 11/15/18 07:30 MPV 9.8 fl (7.0-11.0) 11/15/18 07:30 Neut % (Auto) 83.4 % (50.0-68.0) H 11/11/18 20:12 Lymph % (Auto) 10.9 % (22.0-35.0) L 11/11/18 20:12 Williams % (Auto) 5.1 % (1.0-6.0) 11/11/18 20:12 Eos % (Auto) 0.5 % (1.5-5.0) L 11/11/18 20:12 Baso % (Auto) 0.1 % (0.0-3.0) 11/11/18 20:12 Lymph # (Auto) 1.6 (1.2-3.4) 11/11/18 20:12 Williams # (Auto) 0.7 (0.1-0.6) H 11/11/18 20:12 Eos # (Auto) 0.1 (0.0-0.7) 11/11/18 20:12 Baso # (Auto) 0.01 K/mm3 (0.0-2.0) 11/11/18 20:12 Absolute Neuts (auto) 12.21 (1.4-6.5) H 11/11/18 20:12 ESR 42 mm/hr (0.0-15.0) H 11/14/18 08:06 PT 13.5 SECONDS (9.4-12.5) H 11/11/18 20:12 INR 1.22 11/11/18 20:12 APTT 33.6 Seconds (26.9-38.3) 11/11/18 20:12 pO2 108 mm/Hg (30-55) H 11/11/18 23:55 VBG pH 7.43 (7.32-7.43) 11/11/18 23:55 VBG pCO2 37.0 (40-60) L 11/11/18 23:55 VBG HCO3 24.6 mmol/l (21-28) 11/11/18 23:55 VBG Total CO2 25.7 mmol.L (22-28) 11/11/18 23:55 VBG O2 Sat (Calc) 99.5 % (40-65) H 11/11/18 23:55 VBG Base Excess 0.5 mmol/L (0.0-2.0) 11/11/18 23:55 VBG Potassium 4.0 mmol/L (3.6-5.2) 11/11/18 23:55 Sodium 137.0 mmol/L (132-148) 11/11/18 23:55 Chloride 102.0 mmol/L (98-107) 11/11/18 23:55 Glucose 305 mg/dl (75-110) H 11/11/18 23:55 Lactate 2.0 mmol/L (0.7-2.1) 11/11/18 23:55 FiO2 21.0 % 11/11/18 23:55 Sodium 139 mmol/L (132-148) 11/15/18 07:30 Potassium 3.9 mmol/L (3.6-5.0) 11/15/18 07:30 Chloride 103 mmol/L (98-107) 11/15/18 07:30 Carbon Dioxide 26 mmol/L (21-33) 11/15/18 07:30 Anion Gap 13 (10-20) 11/15/18 07:30 BUN 14 mg/dL (7-21) 11/15/18 07:30 Creatinine 0.7 mg/dl (0.8-1.5) L 11/15/18 07:30 Est GFR ( Amer) > 60 11/15/18 07:30 Est GFR (Non-Af Amer) > 60 11/15/18 07:30 POC Glucose (mg/dL) 228 mg/dL (65-110) H 11/15/18 11:08 Random Glucose 215 mg/dL (70-110) H 11/15/18 07:30 Hemoglobin A1c 10.0 % (4.2-6.5) H 11/12/18 00:00 Calcium 9.1 mg/dL (8.4-10.5) 11/15/18 07:30 Total Bilirubin 0.6 mg/dL (0.2-1.3) 11/15/18 07:30 AST 23 U/L (17-59) 11/15/18 07:30 ALT 31 U/L (7-56) 11/15/18 07:30 Alkaline Phosphatase 76 U/L (38-126) 11/15/18 07:30 Troponin I < 0.01 ng/mL 11/11/18 20:12 C-Reactive Protein 147.50 mg/L (0.0-9.9) H 11/14/18 08:06 Total Protein 8.1 g/dL (5.8-8.3) 11/15/18 07:30 Albumin 4.0 g/dL (3.0-4.8) 11/15/18 07:30 Globulin 4.1 gm/dL 11/15/18 07:30 Albumin/Globulin Ratio 1.0 (1.1-1.8) L 11/15/18 07:30 Procalcitonin 0.24 NG/ML (0.19-0.49) 11/12/18 00:00 Venous Blood Potassium 4.0 mmol/L (3.6-5.2) 11/11/18 23:55 Vancomycin Trough 5.4 ug/mL (5.0-10.0) 11/15/18 07:30 Urine Opiates Screen Negative (NEGATIVE) 11/12/18 15:00 Urine Methadone Screen Negative (NEGATIVE) 11/12/18 15:00 Ur Barbiturates Screen Negative (NEGATIVE) 11/12/18 15:00 Ur Phencyclidine Scrn Negative (NEGATIVE) 11/12/18 15:00 Ur Amphetamines Screen Negative (NEGATIVE) 11/12/18 15:00 U Benzodiazepines Scrn Negative (NEGATIVE) 11/12/18 15:00 U Oth Cocaine Metabols Negative (NEGATIVE) 11/12/18 15:00 U Cannabinoids Screen Negative (NEGATIVE) 11/12/18 15:00 HIV 1&2 Ag/Ab, 4th Gen Nonreactive (Nonreactive) 11/12/18 07:00 - Hospital Course Hospital Course: 47 year old with past medical history of uncontrolled diabetes mellitus and anxiety presented to the ED with complaint of an ulcer on the bottom of the right first toe that had worsening redness and swelling over the past few days. He also complained of a subjective fever. The ulcer was present on his previous admission in May 2018 and shown to be MRSA when cultured. At the time he refused further workup for the ulcer, including foot MRI. He was also noted to have A1c of 10.6 and refused to take diabetes medication despite education. In the ED, patient was found to septic with fever, tachycardia, leukocytosis 2/2 to right foot ulcer. Foot xray showed probably intra-articular fracture of medial base 1st distal phalynx and questionable periosteal reaction suggestive of osteomyelitis at right toe. Additionally, glucose was elevated and A1c was 10.0. On admission, patient was started on vancomycin and merrem for the infection along with insulin for the uncontrolled DM. Fever and leukocytosis eventually resolved. Wound cultures of ulcer showed MRSA and Proteus mirabilis growth. Lower extremity ultrasound showed no evidence of DVT bilaterally. Infectious Disease service highly recommended MRI of the right foot but the patient adamantly refused. Podiatry service offered three-phase bone scan as an alternative, which the patient initially agreed to but ultimately refused. Patient wants no further workup for his ulcer. He refuses all imaging and only wants to continue taking antibiotics. The possible risks of not continuing workup and treatment, such as infection, bacteremia, loss of toe/limb, and were discussed extensively with the patient. Patient acknowledged understanding and chose to sign out AMA despite the risks. Discharge Exam - Additional Findings Additional findings: no PE done. patient signed AMA Discharge Plan - Follow Up Plan Condition: STABLE Disposition: AGAINST MEDICAL ADVICE
--- NOTE | 2018-11-15 17:56 | PN ---
DATE: 11/15/2018 LOCATION: The patient is seen in 560, bed 2 earlier this morning. SUBJECTIVE: The patient is doing well. He had refused an MRI. He is also refusing CAT scan of the foot and a bone scan. I have explained to him earlier this morning the need to do imaging to find out osteomyelitis or not. PHYSICAL EXAMINATION: VITAL SIGNS: Temperature is 98, blood pressure is 130/80, and respiratory rate of 16. HEENT: Unremarkable. NECK: Supple. LUNGS: Have decreased breath sounds. HEART: Normal S1 and S2. ABDOMEN: Soft. LABORATORY DATA: Reviewed. The patient has a sed rate of 42. Chemistries are noted. Toxicology is noted and serologies reviewed and microbiology revealed Proteus mirabilis and MRSA, Pansensitive proteus from the right foot. The blood cultures are negative. ASSESSMENT AND PLAN: A 47-year-old male with nearly sepsis, with methicillin-resistant Staphylococcus aureus and proteus right foot cellulitis, most probably underlying osteomyelitis and the patient wants to be discharged. I have explained to him the need for intravenous antibiotics if he has amputation of his foot and/or or disability. He understands and is willing to leave, not starting workup. We would give him at lest Augmentin p.o. and Zyvox p.o. If unable to get Zyvox, we would give him doxycycline although that is ideal and we would treat at least 4 weeks with the weekly CBC, , C-reactive protein and follow up with PMD. Dominic Blum MD
== END 2018-11-15 13:13 | disposition left against medical advice (07) | DRG 901 ==
LOC: ED 18:55 → ERH 20:54 → 5RNO 22:26
PROVIDERS: ADMIT Internal Medicine; ATTEND Hospitalist
DX: A41.02 Sepsis due to Methicillin resistant Staphylococcus aureus (principal); E11.621 Type 2 diabetes mellitus with foot ulcer; L97.519 Non-pressure chronic ulcer of other part of right foot with unspecified severity; L03.115 Cellulitis of right lower limb; E11.40 Type 2 diabetes mellitus with diabetic neuropathy, unspecified; E11.69 Type 2 diabetes mellitus with other specified complication; M86.9 Osteomyelitis, unspecified; A41.59 Other Gram-negative sepsis; F40.240 Claustrophobia; I10 Essential (primary) hypertension; I25.10 Atherosclerotic heart disease of native coronary artery without angina pectoris; Z91.14 Patient's other noncompliance with medication regimen; E66.9 Obesity, unspecified; Z68.35 Body mass index [BMI] 35.0-35.9, adult; Z87.891 Personal history of nicotine dependence